=== PATIENT | male | born 1970 | race African-American/Black ===

== ENCOUNTER 2016-09-29 20:08 | Emergency (ER) | payer OTHER ==
[~2016-09-29] VITALS: Ht 180.3 cm; Wt 108.4 kg
[~2016-09-29 20:08] MED LIST: ALBU18 IN; ASPI-231 PO; ATOR10TA52 PO; CARV12.516 PO; CLOP75TA28 PO; FUR40T PO; ISOS30TA4 PO; LIS20T PO; NITR0.4S29 SL; OMEP20CA5 PO; SPIR25TA89 PO
[2016-09-29 21:06] LABS: Basophils # (auto) 0 uL; Basophils % (auto) 0.4 % (0.0-2.0); DEFINITIVE VIEW TRANSMISSION; Eosinophils # (auto) 0 uL; Hematocrit 42.2 % (41.0-53.0); Hemoglobin 13.6 g/dL (13.5-17.5); Lymphocytes # (auto) 0.8 uL; Lymphocytes % (auto) 17.6 % (10.0-50.0); Mean Corpuscular Hemoglobin 25.5 pg (28.0-32.0); Mean Corpuscular Hgb Conc. 32.3 g/dL (32.0-36.0); Mean Corpuscular Volume 79.1 fL (80.0-100.0); Mean Platelet Volume 8.7 fL (7.4-10.4); Monocytes # (auto) 0.4 uL; Neutrophils # (auto) 3.4 uL; Platelet Count (auto) 316 10^3/uL (140-450); White Blood Cell 4.7 10^3/uL (4.4-10.8)
[2016-09-29 21:23] LABS: Partial Thromboplastin Time 30.8 sec (22.64-33.71)
[2016-09-29 21:25] LABS: Albumin 3.2 g/dL (3.4-5.0); BUN/Creatinine Ratio 16.9; Calcium 8.5 mg/dL (8.5-10.1); Potassium 4.5 mmol/L (3.5-5.1)
[2016-09-29 21:27] LABS: INR 1.97 (0.9-1.15); Prothrombin Time 20.3 sec (9.37-12.3)
[2016-09-29] MEDS ORDERED: MORPHINE SULF INJ 2 MG/ML SYRINGE 1ML IV ONE (21:30)
[2016-09-29] MEDS ORDERED: ONDANSETRON HCL 4 MG/2 ML VIAL IV ONE (21:30)
[2016-09-29 21:31] LABS: Bilirubin, Total 0.9 mg/dL (0.2-1.0); Total Protein 6.8 g/dL (6.4-8.2)
[2016-09-29 21:58] LABS: Anisocytosis Slight; Platelet Estimate Adequate
[2016-09-29 21:59] LABS: Ovalocytes FEW
[2016-09-29 22:12] LABS: B-Type Natriuretic Peptide 3119.09 pg/mL (0-100)
[2016-09-29 22:13] LABS: Temperature: 22.2 C (20.0-25.0)
[2016-09-30] MEDS ORDERED: MORPHINE SULF INJ 2 MG/ML SYRINGE 1ML IV ONE (00:15)
[2016-09-30] MEDS ORDERED: ONDANSETRON HCL 4 MG/2 ML VIAL IV ONE (00:15)
[2016-09-30] MEDS ORDERED: NITROGLYCERIN 0.2MG/HR TOPICAL PATCH TD ONE (01:00)
[2016-09-30] MEDS ORDERED: FUROSEMIDE 20 MG/2 ML VIAL IV ONE (01:00)
[2016-09-30] MEDS ORDERED: ASPirin 81 mg TAB PO ONE (01:00)
[2016-09-30 03:07] VITALS: BP 118/57
== END 2016-09-30 03:32 | disposition short-term general hospital (02) ==
LOC: ER 20:08 → EDBD 20:08 → ER 09-30 03:32
DX: I13.0 Hypertensive heart and chronic kidney disease with heart failure and stage 1 through stage 4 chronic kidney disease, or unspecified chronic kidney disease (principal); I50.43 Acute on chronic combined systolic (congestive) and diastolic (congestive) heart failure; R79.89 Other specified abnormal findings of blood chemistry; N28.9 Disorder of kidney and ureter, unspecified; N18.9 Chronic kidney disease, unspecified; I25.2 Old myocardial infarction; Z86.73 Personal history of transient ischemic attack (TIA), and cerebral infarction without residual deficits
CPT/HCPCS: 36415; 71010; 80053; 82150; 83690; 83880; 84484; 85025; 85379; 85610; 85730; 93005; 94761; 96374; 96375; 96376; 99285; J1940; J2270; J2405

== ENCOUNTER 2016-10-15 06:11 | Inpatient (IN) | payer OTHER ==
[~2016-10-15] VITALS: Ht 180.3 cm; Wt 109.8 kg
[2016-10-15 07:03] LABS: Basophils # (auto) 0 uL; Basophils % (auto) 0.5 % (0.0-2.0); DEFINITIVE VIEW TRANSMISSION; Eosinophils # (auto) 0.1 uL; Hematocrit 38.7 % (41.0-53.0); Hemoglobin 12.4 g/dL (13.5-17.5); Lymphocytes # (auto) 0.8 uL; Mean Corpuscular Hemoglobin 25.2 pg (28.0-32.0); Mean Corpuscular Volume 78.9 fL (80.0-100.0); Mean Platelet Volume 8.7 fL (7.4-10.4); Monocytes # (auto) 0.4 uL; Monocytes % (auto) 8.4 % (0.0-12.0); Neutrophils # (auto) 3.9 uL; Neutrophils % (auto) 74.1 % (37.0-80.0); Platelet Count (auto) 281 10^3/uL (140-450); SUSPECT VIEW TRANSMISSION; White Blood Cell 5.3 10^3/uL (4.4-10.8)
[2016-10-15 07:14] LABS: Red Cell Distribution Width 20.2 % (11.6-16.0)
[2016-10-15 07:46] LABS: Albumin 3.4 g/dL (3.4-5.0); BUN/Creatinine Ratio 20.4; Bilirubin, Total 1.1 mg/dL (0.2-1.0); Calcium 8.6 mg/dL (8.5-10.1); Potassium 3.8 mmol/L (3.5-5.1); Total Protein 6.9 g/dL (6.4-8.2)
[2016-10-15] MEDS ORDERED: MORPHINE SULF INJ 2 MG/ML SYRINGE 1ML IV PRN ×2 (08:30→09:00)
[2016-10-15] MEDS ORDERED: HYDROcodone-ACET 5/325MG TAB PO PRN (08:30)
[2016-10-15] MEDS ORDERED: LACTULOSE 20Gm/30ML SOLN PO PRN (08:30)
[2016-10-15] MEDS ORDERED: ACETAMINOPHEN 500 MG TAB PO PRN (08:30)
[2016-10-15] MEDS ORDERED: TEMAZEPAM 15 MG CAP PO PRN (08:30)
[2016-10-15] MEDS ORDERED: PROMETHAZINE HCL 25 MG/ML 1ML IV PRN (08:30)
[2016-10-15] MEDS ORDERED: LORazepam 0.5 MG TAB PO PRN (08:30)
[2016-10-15] MEDS ORDERED: NITROGLYCERIN 0.4 MG SL TAB SL PRN (09:00)
[2016-10-15] MEDS: SODIUM CHLORIDE 0.9% 1,000 ML IV SCH ×2 (09:02→22:08)
[2016-10-15] MEDS: ENOXAPARIN SOD 40 MG/0.4 ML SYRINGE SC SCH (09:31)
[2016-10-15] MEDS: PANTOPRAZOLE 40 MG TAB PO SCH (09:31)
[2016-10-15] MEDS: CLOPIDOGREL BISULFATE 75 MG TAB PO SCH (09:31)
[2016-10-15] MEDS: CARVEDILOL 12.5 MG TAB PO SCH ×2 (09:32→22:16)
[2016-10-15] MEDS: SPIRONOLACTONE 25 MG TAB PO SCH (09:32)
[2016-10-15] MEDS: ASPirin 81 mg TAB PO SCH (09:32)
[2016-10-15] MEDS: LISINOPRIL 20 MG TAB PO SCH (09:33)
[2016-10-15] MEDS: NITROGLYCERIN 0.2MG/HR TOPICAL PATCH TD SCH (09:33)
[2016-10-15] MEDS: FUROSEMIDE 40 MG TAB PO SCH (09:33)
[2016-10-15 10:45] LABS: Partial Thromboplastin Time 30.3 sec (22.64-33.71)
[2016-10-15] MEDS: ALBUTEROL SULF 2.5 MG/0.5ML(0.5%) NEB SOLN NEB PRN ×2 (11:10→22:52)
[2016-10-15 11:29] LABS: INR 1.89 (0.9-1.15); Prothrombin Time 19.5 sec (9.37-12.3)
[2016-10-15 12:35] LABS: Microcytosis Slight
[2016-10-15 12:38] LABS: Anisocytosis Slight; Burr Cells FEW; Hypochromia Slight; Ovalocytes MODERATE
[2016-10-15 12:39] LABS: Platelet Estimate Adequate
[2016-10-15 13:00] VITALS: BP 87/61
[2016-10-15] MEDS: HYDROmorphone HCL 2 MG/ML VL IV PRN ×3 (14:17→23:00)
[2016-10-15] MEDS ORDERED: WARF6TAB21 PO (14:55)
[2016-10-15 15:22] VITALS: BP 87/61
[2016-10-15 17:00] VITALS: BP 101/71
[2016-10-15 20:00] VITALS: BP 116/65
[2016-10-15 21:37] VITALS: BP 116/68
[2016-10-15] MEDS: ATORVASTATIN 20 MG TAB PO SCH (22:17)
[2016-10-15] MEDS: ISOSORBIDE MONONITRATE 60 MG TAB PO SCH (22:17)
[2016-10-16 05:00] VITALS: BP 115/73
[2016-10-16] MEDS: HYDROmorphone HCL 2 MG/ML VL IV PRN ×4 (05:36→20:53)
[2016-10-16 06:43] LABS: Basophils # (auto) 0 uL; Basophils % (auto) 0.5 % (0.0-2.0); DEFINITIVE VIEW TRANSMISSION; Eosinophils # (auto) 0.1 uL; Eosinophils % (auto) 1.6 % (0.0-7.0); Hemoglobin 11.7 g/dL (13.5-17.5); Lymphocytes # (auto) 0.8 uL; Lymphocytes % (auto) 19.1 % (10.0-50.0); Mean Corpuscular Hemoglobin 25.3 pg (28.0-32.0); Mean Corpuscular Hgb Conc. 31.6 g/dL (32.0-36.0); Mean Corpuscular Volume 79.8 fL (80.0-100.0); Mean Platelet Volume 8.7 fL (7.4-10.4); Monocytes # (auto) 0.4 uL; Monocytes % (auto) 9.6 % (0.0-12.0); Neutrophils # (auto) 2.8 uL; Neutrophils % (auto) 69.2 % (37.0-80.0); Platelet Count (auto) 253 10^3/uL (140-450)
[2016-10-16 07:04] LABS: Albumin 2.9 g/dL (3.4-5.0); Bilirubin, Total 0.8 mg/dL (0.2-1.0); Calcium 8.2 mg/dL (8.5-10.1); Potassium 4.4 mmol/L (3.5-5.1)
[2016-10-16 08:00] VITALS: BP 124/78
[2016-10-16] MEDS: SPIRONOLACTONE 25 MG TAB PO SCH (10:02)
[2016-10-16] MEDS: LISINOPRIL 20 MG TAB PO SCH (10:02)
[2016-10-16] MEDS: CLOPIDOGREL BISULFATE 75 MG TAB PO SCH (10:04)
[2016-10-16] MEDS: ASPirin 81 mg TAB PO SCH (10:04)
[2016-10-16] MEDS: CARVEDILOL 12.5 MG TAB PO SCH ×2 (10:04→22:51)
[2016-10-16] MEDS: FUROSEMIDE 40 MG TAB PO SCH (10:05)
[2016-10-16] MEDS: PANTOPRAZOLE 40 MG TAB PO SCH (10:05)
[2016-10-16] MEDS: NITROGLYCERIN 0.2MG/HR TOPICAL PATCH TD SCH (10:06)
[2016-10-16] MEDS: ENOXAPARIN SOD 40 MG/0.4 ML SYRINGE SC SCH (10:07)
[2016-10-16] MEDS: SODIUM CHLORIDE 0.9% 1,000 ML IV SCH (11:04)
[2016-10-16 12:30] VITALS: BP 107/71
[2016-10-16 15:17] LABS: Platelet Estimate Adequate
[2016-10-16 15:21] LABS: Anisocytosis Slight; Hypochromia Moderate
[2016-10-16 15:22] LABS: Burr Cells FEW; Microcytosis Slight; Ovalocytes MODERATE
[2016-10-16 17:00] VITALS: BP 115/44
[2016-10-16] MEDS ORDERED: WARFARIN SODIUM 10 MG TAB PO ONE (17:00)
[2016-10-16] MEDS: ALBUTEROL SULF 2.5 MG/0.5ML(0.5%) NEB SOLN NEB PRN (18:25)
[2016-10-16 22:00] VITALS: BP 106/68
[2016-10-16] MEDS: ATORVASTATIN 20 MG TAB PO SCH (22:49)
[2016-10-16] MEDS: ISOSORBIDE MONONITRATE 60 MG TAB PO SCH (22:52)
[2016-10-17 00:23] LABS: B-Type Natriuretic Peptide 1631.02 pg/mL (0-100); Temperature: 23.1 C (20.0-25.0)
[2016-10-17] MEDS: SODIUM CHLORIDE 0.9% 1,000 ML IV SCH ×2 (00:24→14:08)
[2016-10-17 05:00] VITALS: BP 119/63
[2016-10-17 06:42] LABS: Partial Thromboplastin Time 31.1 sec (22.64-33.71)
[2016-10-17 06:44] LABS: INR 2.27 (0.9-1.15); Prothrombin Time 23.4 sec (9.37-12.3)
[2016-10-17] MEDS: ALBUTEROL SULF 2.5 MG/0.5ML(0.5%) NEB SOLN NEB PRN (07:54)
[2016-10-17 08:00] VITALS: BP 92/53
[2016-10-17 08:30] VITALS: BP 92/53
[2016-10-17] MEDS: HYDROmorphone HCL 2 MG/ML VL IV PRN ×3 (09:47→18:40)
[2016-10-17] MEDS: CLOPIDOGREL BISULFATE 75 MG TAB PO SCH (09:48)
[2016-10-17] MEDS: ENOXAPARIN SOD 40 MG/0.4 ML SYRINGE SC SCH (09:48)
[2016-10-17] MEDS: LISINOPRIL 20 MG TAB PO SCH (09:49)
[2016-10-17] MEDS: ASPirin 81 mg TAB PO SCH (09:49)
[2016-10-17] MEDS: PANTOPRAZOLE 40 MG TAB PO SCH (09:49)
[2016-10-17] MEDS: FUROSEMIDE 40 MG TAB PO SCH (09:49)
[2016-10-17] MEDS: NITROGLYCERIN 0.2MG/HR TOPICAL PATCH TD SCH (09:50)
[2016-10-17] MEDS: SPIRONOLACTONE 25 MG TAB PO SCH (09:50)
[2016-10-17] MEDS: CARVEDILOL 12.5 MG TAB PO SCH (09:50)
[2016-10-17 12:30] VITALS: BP 112/74
[2016-10-17 17:19] VITALS: BP 100/60
== END 2016-10-17 18:45 | disposition short-term general hospital (02) | DRG 291 ==
LOC: ER 06:16 → TELE 06:17 → TELE-EAST 13:00
PROVIDERS: ADMIT Internal Medicine; ATTEND Internal Medicine Pulmonary Disease
DX: I13.0 Hypertensive heart and chronic kidney disease with heart failure and stage 1 through stage 4 chronic kidney disease, or unspecified chronic kidney disease (principal); I50.43 Acute on chronic combined systolic (congestive) and diastolic (congestive) heart failure; I24.9 Acute ischemic heart disease, unspecified; I42.9 Cardiomyopathy, unspecified; E66.01 Morbid (severe) obesity due to excess calories; N18.2 Chronic kidney disease, stage 2 (mild); I25.10 Atherosclerotic heart disease of native coronary artery without angina pectoris; I25.2 Old myocardial infarction; Z95.5 Presence of coronary angioplasty implant and graft; Z87.11 Personal history of peptic ulcer disease; Z86.73 Personal history of transient ischemic attack (TIA), and cerebral infarction without residual deficits; Z95.810 Presence of automatic (implantable) cardiac defibrillator; Z68.33 Body mass index [BMI] 33.0-33.9, adult; Z82.49 Family history of ischemic heart disease and other diseases of the circulatory system; Z86.711 Personal history of pulmonary embolism
CPT/HCPCS: 36415; 71010; 80053; 80061; 82550; 83880; 84484; 85025; 85379; 85610; 85652; 85730; 86141; 93005; 94640; 96374; 99291

== ENCOUNTER 2016-11-06 15:58 | Emergency (ER) | payer OTHER ==
[~2016-11-06] VITALS: Ht 185.4 cm; Wt 99.8 kg
[~2016-11-06 15:58] MED LIST changes: -ASPI-231 PO; -OMEP20CA5 PO; +WARF6TAB21 PO
[2016-11-06 17:10] LABS: Basophils # (auto) 0 uL; Basophils % (auto) 0.5 % (0.0-2.0); DEFINITIVE VIEW TRANSMISSION; Eosinophils # (auto) 0 uL; Eosinophils % (auto) 0.5 % (0.0-7.0); Hematocrit 40.5 % (41.0-53.0); Lymphocytes # (auto) 0.5 uL; Lymphocytes % (auto) 9.6 % (10.0-50.0); Mean Corpuscular Hemoglobin 25.6 pg (28.0-32.0); Mean Corpuscular Hgb Conc. 32.1 g/dL (32.0-36.0); Mean Corpuscular Volume 79.9 fL (80.0-100.0); Mean Platelet Volume 8.9 fL (7.4-10.4); Monocytes # (auto) 0.3 uL; Monocytes % (auto) 5.8 % (0.0-12.0); Neutrophils # (auto) 4.3 uL; Neutrophils % (auto) 83.6 % (37.0-80.0); Platelet Count (auto) 260 10^3/uL (140-450); White Blood Cell 5.1 10^3/uL (4.4-10.8)
[2016-11-06 17:12] LABS: Red Cell Distribution Width 22.9 % (11.6-16.0)
[2016-11-06 17:13] LABS: Albumin 3.5 g/dL (3.4-5.0); BUN/Creatinine Ratio 18.5; Calcium 8.5 mg/dL (8.5-10.1); Magnesium 2.1 mg/dL (1.6-2.6); Potassium 3.8 mmol/L (3.5-5.1)
[2016-11-06 17:18] LABS: Bilirubin, Total 0.7 mg/dL (0.2-1.0); Total Protein 6.7 g/dL (6.4-8.2)
[2016-11-06 18:08] LABS: Anisocytosis Moderate; Burr Cells FEW; Platelet Estimate Adequate
[2016-11-06 18:09] LABS: Hypochromia Slight; Ovalocytes MODERATE
[2016-11-06] MEDS ORDERED: MORPHINE SULFATE 4 MG/ML SYRG IV ONE (19:15)
[2016-11-06] MEDS ORDERED: ONDANSETRON HCL 4 MG/2 ML VIAL IV ONE (19:15)
[2016-11-06 19:32] VITALS: BP 116/82
== END 2016-11-06 21:51 | disposition home or self-care (01) ==
LOC: ER 15:58 → EDBD 15:58 → ER 21:51
DX: R07.2 Precordial pain (principal); F41.9 Anxiety disorder, unspecified; I25.10 Atherosclerotic heart disease of native coronary artery without angina pectoris; I13.0 Hypertensive heart and chronic kidney disease with heart failure and stage 1 through stage 4 chronic kidney disease, or unspecified chronic kidney disease; I50.9 Heart failure, unspecified; N18.9 Chronic kidney disease, unspecified; I25.2 Old myocardial infarction; Z95.0 Presence of cardiac pacemaker; Z79.01 Long term (current) use of anticoagulants
CPT/HCPCS: 36415; 71020; 80053; 83735; 84484; 85025; 93005; 96374; 96375; 99285; J2270; J2405

== ENCOUNTER 2017-02-04 09:53 | Emergency (ER) | payer OTHER ==
[~2017-02-04] VITALS: Ht 180.3 cm; Wt 97.5 kg
[~2017-02-04 09:53] MED LIST changes: +CAR125T PO; -CARV12.516 PO
[2017-02-04 10:30] LABS: Basophils # (auto) 0 uL; Basophils % (auto) 0.3 % (0.0-2.0); CONDITION Y; DEFINITIVE SEE PRINTOUT; Eosinophils # (auto) 0 uL; Eosinophils % (auto) 0.8 % (0.0-7.0); Hematocrit 40.7 % (41.0-53.0); Hemoglobin 13.1 g/dL (13.5-17.5); Lymphocytes # (auto) 0.8 uL; Lymphocytes % (auto) 17.9 % (10.0-50.0); Mean Corpuscular Hemoglobin 25.5 pg (28.0-32.0); Mean Corpuscular Hgb Conc. 32.2 g/dL (32.0-36.0); Mean Corpuscular Volume 79.3 fL (80.0-100.0); Mean Platelet Volume 8.6 fL (7.4-10.4); Monocytes # (auto) 0.4 uL; Monocytes % (auto) 9.1 % (0.0-12.0); Neutrophils # (auto) 3.2 uL; Neutrophils % (auto) 71.9 % (37.0-80.0); Platelet Count (auto) 325 10^3/uL (140-450); White Blood Cell 4.4 10^3/uL (4.4-10.8)
[2017-02-04 10:55] LABS: Albumin 3.4 g/dL (3.4-5.0); BUN/Creatinine Ratio 17.4; Bilirubin, Total 0.7 mg/dL (0.2-1.0); Calcium 8.6 mg/dL (8.5-10.1); Total Protein 6.8 g/dL (6.4-8.2)
[2017-02-04 11:18] LABS: Platelet Estimate Adequate
[2017-02-04 11:22] LABS: Anisocytosis Slight; Hypochromia Slight; Microcytosis Slight
[2017-02-04 11:23] LABS: Ovalocytes MODERATE
[2017-02-04] MEDS ORDERED: SODIUM CHLORIDE 0.9% 1,000 ML IV ONE (12:29)
[2017-02-04] MEDS ORDERED: MORPHINE SULFATE 4 MG/ML SYRG IV ONE ×2 (12:30→17:15)
[2017-02-04] MEDS ORDERED: ONDANSETRON HCL 4 MG/2 ML VIAL IV ONE (12:30)
[2017-02-04] MEDS ORDERED: LORazepam 0.5 MG TAB PO PRN ×2 (14:00)
[2017-02-04] MEDS ORDERED: ALBUTEROL SULF 2.5 MG/0.5ML(0.5%) NEB SOLN NEB PRN (14:00)
[2017-02-04] MEDS ORDERED: TEMAZEPAM 15 MG CAP PO PRN ×2 (14:00)
[2017-02-04] MEDS ORDERED: ONDANSETRON HCL 4 MG/2 ML VIAL IV PRN (14:00)
[2017-02-04] MEDS ORDERED: NITROGLYCERIN 0.4 MG SL TAB SL PRN ×2 (14:00)
[2017-02-04] MEDS ORDERED: MORPHINE SULFATE 4 MG/ML SYRG IV PRN ×4 (14:00)
[2017-02-04] MEDS ORDERED: LACTULOSE 20Gm/30ML SOLN PO PRN (14:00)
[2017-02-04] MEDS ORDERED: ACETAMINOPHEN 500 MG TAB PO PRN ×2 (14:00)
[2017-02-04] MEDS ORDERED: HYDROcodone-ACET 5/325MG TAB PO PRN ×2 (14:00)
[2017-02-04] MEDS ORDERED: PROMETHAZINE HCL 25 MG/ML 1ML IV PRN (14:00)
[2017-02-04 14:29] LABS: Cholesterol 115 mg/dL (< 200); HDL Cholesterol 45 mg/dL (40-59); LDL Cholesterol 62 mg/dL (< 100); Triglycerides 60 mg/dL (< 150)
[2017-02-04] MEDS ORDERED: FUROSEMIDE 40 MG TAB PO ONE (14:30)
[2017-02-04] MEDS ORDERED: CLOPIDOGREL BISULFATE 75 MG TAB PO ONE (14:30)
[2017-02-04] MEDS ORDERED: LISINOPRIL 20 MG TAB PO ONE (14:30)
[2017-02-04 14:42] LABS: INR 1.77 (0.9-1.15); Partial Thromboplastin Time 31.7 sec (22.64-33.71)
[2017-02-04] MEDS ORDERED: SPIRONOLACTONE 25 MG TAB PO ONE (14:45)
[2017-02-04] MEDS ORDERED: NITROGLYCERIN 0.2MG/HR TOPICAL PATCH TD ONE (14:45)
[2017-02-04] MEDS ORDERED: ASPirin 81 mg TAB PO ONE (14:45)
[2017-02-04] MEDS ORDERED: ENOXAPARIN SOD 40 MG/0.4 ML SYRINGE SC ONE (14:45)
[2017-02-04] MEDS ORDERED: ISOSORBIDE MONONITRATE 60 MG TAB PO SCH (14:45)
[2017-02-04 15:02] LABS: Prothrombin Time 19.4 sec (9.37-12.3)
[2017-02-04 15:07] VITALS: BP 107/54
[2017-02-04 16:13] LABS: B-Type Natriuretic Peptide 1563.12 pg/mL (0-100)
[2017-02-04 16:45] LABS: Temperature: 23.1 C (20.0-25.0)
[2017-02-04] MEDS ORDERED: WARFARIN SODIUM 5 MG TAB PO ONE (17:00)
[2017-02-04 18:00] VITALS: BP 128/69
[2017-02-04] MEDS ORDERED: CARVEDILOL 12.5 MG TAB PO SCH (22:00)
[2017-02-04] MEDS ORDERED: ATORVASTATIN 20 MG TAB PO SCH (22:00)
[2017-02-05] MEDS ORDERED: ASPirin 81 mg TAB PO SCH ×2 (10:00)
[2017-02-05] MEDS ORDERED: NITROGLYCERIN 0.2MG/HR TOPICAL PATCH TD SCH ×2 (10:00)
[2017-02-05] MEDS ORDERED: SPIRONOLACTONE 25 MG TAB PO SCH (10:00)
[2017-02-05] MEDS ORDERED: ENOXAPARIN SOD 40 MG/0.4 ML SYRINGE SC SCH (10:00)
[2017-02-05] MEDS ORDERED: FUROSEMIDE 40 MG TAB PO SCH (10:00)
[2017-02-05] MEDS ORDERED: CLOPIDOGREL BISULFATE 75 MG TAB PO SCH (10:00)
[2017-02-05] MEDS ORDERED: LISINOPRIL 20 MG TAB PO SCH (10:00)
== END 2017-02-04 18:17 | disposition short-term general hospital (02) ==
LOC: ER 09:53
DX: I24.9 Acute ischemic heart disease, unspecified (principal); R79.89 Other specified abnormal findings of blood chemistry; I25.10 Atherosclerotic heart disease of native coronary artery without angina pectoris; I13.0 Hypertensive heart and chronic kidney disease with heart failure and stage 1 through stage 4 chronic kidney disease, or unspecified chronic kidney disease; N18.9 Chronic kidney disease, unspecified; E78.5 Hyperlipidemia, unspecified; I25.2 Old myocardial infarction; Z95.0 Presence of cardiac pacemaker; Z79.01 Long term (current) use of anticoagulants; I50.9 Heart failure, unspecified; Z86.79 Personal history of other diseases of the circulatory system
CPT/HCPCS: 36415; 71020; 80053; 80061; 82550; 83880; 84443; 84484; 85025; 85379; 85610; 85652; 85730; 86141; 93005; 93971; 94761; 96361; 96374; 96375; 96376; 99285; J2270; J2405; J7030

== ENCOUNTER 2017-02-10 19:47 | Emergency (ER) | payer OTHER ==
[~2017-02-10] VITALS: Ht 180.3 cm; Wt 97.5 kg
[2017-02-10 20:38] LABS: Basophils # (auto) 0 uL; Basophils % (auto) 0.3 % (0.0-2.0); CONDITION Y; DEFINITIVE SEE PRINTOUT; Eosinophils # (auto) 0.1 uL; Eosinophils % (auto) 1.5 % (0.0-7.0); Hematocrit 40.6 % (41.0-53.0); Hemoglobin 13.5 g/dL (13.5-17.5); Lymphocytes # (auto) 1.1 uL; Lymphocytes % (auto) 21.6 % (10.0-50.0); Mean Corpuscular Hemoglobin 26.2 pg (28.0-32.0); Mean Corpuscular Hgb Conc. 33.3 g/dL (32.0-36.0); Mean Corpuscular Volume 78.8 fL (80.0-100.0); Mean Platelet Volume 8.9 fL (7.4-10.4); Monocytes # (auto) 0.4 uL; Monocytes % (auto) 8.4 % (0.0-12.0); Neutrophils # (auto) 3.4 uL; Neutrophils % (auto) 68.2 % (37.0-80.0); Platelet Count (auto) 297 10^3/uL (140-450); Red Cell Distribution Width 19.6 % (11.6-16.0)
[2017-02-10 20:48] LABS: Albumin 3.3 g/dL (3.4-5.0); BUN/Creatinine Ratio 16.1; Calcium 8.2 mg/dL (8.5-10.1); Potassium 4.2 mmol/L (3.5-5.1)
[2017-02-10 20:57] LABS: Bilirubin, Total 0.7 mg/dL (0.2-1.0); Total Protein 6.9 g/dL (6.4-8.2)
[2017-02-10 20:58] LABS: Urine Bilirubin Negative (Negative); Urine Blood Negative /uL (Negative); Urine Color Yellow (Yellow); Urine Glucose Normal (Normal); Urine Ketone Negative (Negative); Urine Mucus FEW (None Seen); Urine Nitrite Negative (Negative); Urine RBC <1 /hpf (0 - 3); Urine Urobilinogen Normal (Negative)
[2017-02-10 21:03] LABS: Temperature: 23.1 C (20.0-25.0)
[2017-02-10 21:29] LABS: Anisocytosis Slight; Hypochromia Slight; Ovalocytes FEW; Platelet Estimate Adequate
[2017-02-10] MEDS: ONDANSETRON HCL 4 MG/2 ML VIAL IV ONE (22:52)
[2017-02-10] MEDS: MORPHINE SULFATE 4 MG/ML SYRG IV ONE (22:55)
[2017-02-10] MEDS: FUROSEMIDE 20 MG/2 ML VIAL IV ONE (22:58)
[2017-02-11] MEDS: MORPHINE SULFATE 4 MG/ML SYRG IV ONE (01:40)
[2017-02-11 06:54] VITALS: BP 139/81
== END 2017-02-11 07:19 | disposition home or self-care (01) ==
LOC: ER 19:47
DX: I13.0 Hypertensive heart and chronic kidney disease with heart failure and stage 1 through stage 4 chronic kidney disease, or unspecified chronic kidney disease (principal); I50.33 Acute on chronic diastolic (congestive) heart failure; R07.9 Chest pain, unspecified; E78.5 Hyperlipidemia, unspecified; I25.2 Old myocardial infarction; I42.9 Cardiomyopathy, unspecified; Z79.01 Long term (current) use of anticoagulants; I25.10 Atherosclerotic heart disease of native coronary artery without angina pectoris; Z95.0 Presence of cardiac pacemaker; N18.9 Chronic kidney disease, unspecified
CPT/HCPCS: 36415; 71020; 80053; 81001; 83735; 83880; 84484; 85025; 93005; 94761; 96374; 96375; 96376; 99285; J1940; J2270; J2405

== ENCOUNTER 2017-02-22 22:46 | Emergency (ER) | payer OTHER ==
[~2017-02-22] VITALS: Ht 180.3 cm; Wt 97.5 kg
[2017-02-22 23:20] LABS: Basophils # (auto) 0 uL; Basophils % (auto) 0.1 % (0.0-2.0); CONDITION Y; DEFINITIVE SEE PRINTOUT; Eosinophils # (auto) 0.1 uL; Eosinophils % (auto) 0.9 % (0.0-7.0); Hematocrit 38.2 % (41.0-53.0); Hemoglobin 12.1 g/dL (13.5-17.5); Lymphocytes # (auto) 0.8 uL; Lymphocytes % (auto) 13.3 % (10.0-50.0); Mean Corpuscular Hemoglobin 25.2 pg (28.0-32.0); Mean Corpuscular Hgb Conc. 31.8 g/dL (32.0-36.0); Mean Corpuscular Volume 79.2 fL (80.0-100.0); Mean Platelet Volume 8.5 fL (7.4-10.4); Monocytes # (auto) 0.4 uL; Monocytes % (auto) 6.6 % (0.0-12.0); Neutrophils # (auto) 4.5 uL; Neutrophils % (auto) 79.1 % (37.0-80.0); Platelet Count (auto) 295 10^3/uL (140-450); Red Cell Distribution Width 19.5 % (11.6-16.0); White Blood Cell 5.7 10^3/uL (4.4-10.8)
[2017-02-22 23:34] LABS: INR 2.49 (0.9-1.15); Partial Thromboplastin Time 34.3 sec (22.64-33.71)
[2017-02-22 23:42] LABS: Prothrombin Time 27.4 sec (9.37-12.3)
[2017-02-22 23:44] LABS: Albumin 3.3 g/dL (3.4-5.0); BUN/Creatinine Ratio 15.8; Calcium 8.6 mg/dL (8.5-10.1); Magnesium 2.1 mg/dL (1.6-2.6); Potassium 4.1 mmol/L (3.5-5.1)
[2017-02-22 23:50] LABS: Bilirubin, Total 0.6 mg/dL (0.2-1.0); Total Protein 6.5 g/dL (6.4-8.2)
[2017-02-23] MEDS ORDERED: FUROSEMIDE 20 MG/2 ML VIAL IV ONE (01:15)
[2017-02-23] MEDS ORDERED: HYDROmorphone HCL 2 MG/ML VL IV ONE ×2 (01:45→06:30)
[2017-02-23] MEDS ORDERED: ONDANSETRON HCL 4 MG/2 ML VIAL IV ONE ×2 (01:45→06:30)
[2017-02-23 08:17] VITALS: BP 106/72
== END 2017-02-23 09:39 | disposition short-term general hospital (02) ==
LOC: EDBD 22:46 → ER 22:46
DX: I13.0 Hypertensive heart and chronic kidney disease with heart failure and stage 1 through stage 4 chronic kidney disease, or unspecified chronic kidney disease (principal); I50.9 Heart failure, unspecified; N18.9 Chronic kidney disease, unspecified; R79.89 Other specified abnormal findings of blood chemistry; E78.5 Hyperlipidemia, unspecified; I25.2 Old myocardial infarction; I25.10 Atherosclerotic heart disease of native coronary artery without angina pectoris; Z95.1 Presence of aortocoronary bypass graft; Z98.61 Coronary angioplasty status; Z79.899 Other long term (current) drug therapy
CPT/HCPCS: 36415; 71010; 80053; 83735; 83880; 84484; 85025; 85379; 85610; 85730; 93005; 96374; 96375; 96376; 99285; J1170; J1940; J2405

== ENCOUNTER 2017-03-20 03:13 | Emergency (ER) | payer OTHER ==
[~2017-03-20] VITALS: Ht 180.3 cm; Wt 102.1 kg
[2017-03-20 04:23] LABS: Basophils # (auto) 0 uL; Basophils % (auto) 0.2 % (0.0-2.0); CONDITION Y; DEFINITIVE SEE PRINTOUT; Eosinophils # (auto) 0.1 uL; Eosinophils % (auto) 2.9 % (0.0-7.0); Hematocrit 39.3 % (41.0-53.0); Hemoglobin 12.4 g/dL (13.5-17.5); Lymphocytes # (auto) 0.8 uL; Lymphocytes % (auto) 16.2 % (10.0-50.0); Mean Corpuscular Hemoglobin 24.8 pg (28.0-32.0); Mean Corpuscular Hgb Conc. 31.5 g/dL (32.0-36.0); Mean Corpuscular Volume 78.7 fL (80.0-100.0); Monocytes # (auto) 0.4 uL; Neutrophils # (auto) 3.4 uL; Neutrophils % (auto) 71.7 % (37.0-80.0); Platelet Count (auto) 276 10^3/uL (140-450); Red Cell Distribution Width 19.8 % (11.6-16.0); White Blood Cell 4.8 10^3/uL (4.4-10.8)
[2017-03-20] MEDS ORDERED: ONDANSETRON HCL 4 MG/2 ML VIAL IV ONE (04:30)
[2017-03-20] MEDS ORDERED: HYDROmorphone HCL 2 MG/ML VL IV ONE (04:30)
[2017-03-20 04:42] LABS: Temperature: 21.9 C (20.0-25.0)
[2017-03-20 04:51] LABS: Albumin 3.2 g/dL (3.4-5.0); BUN/Creatinine Ratio 16.8; Magnesium 2.2 mg/dL (1.6-2.6); Potassium 3.8 mmol/L (3.5-5.1)
[2017-03-20 04:56] LABS: Bilirubin, Total 0.7 mg/dL (0.2-1.0); Total Protein 6.9 g/dL (6.4-8.2)
[2017-03-20] MEDS ORDERED: FUROSEMIDE 20 MG/2 ML VIAL IV ONE (07:45)
[2017-03-20] MEDS ORDERED: MORPHINE SULF INJ 2 MG/ML SYRINGE 1ML IV PRN (07:45)
[2017-03-20 10:48] LABS: Urine Bilirubin Negative (Negative); Urine Blood Negative /uL (Negative); Urine Color Colorless (Yellow); Urine Glucose Normal (Normal); Urine Ketone Negative (Negative); Urine Mucus FEW (None Seen); Urine Nitrite Negative (Negative); Urine RBC <1 /hpf (0 - 3); Urine Squamous Epithelial Cell FEW /hpf (<5); Urine Urobilinogen Normal (Negative)
[2017-03-20 12:42] VITALS: BP 123/81
== END 2017-03-20 12:50 | disposition home or self-care (01) ==
LOC: ER 03:16
DX: I25.118 Atherosclerotic heart disease of native coronary artery with other forms of angina pectoris (principal); I13.0 Hypertensive heart and chronic kidney disease with heart failure and stage 1 through stage 4 chronic kidney disease, or unspecified chronic kidney disease; I50.42 Chronic combined systolic (congestive) and diastolic (congestive) heart failure; N18.9 Chronic kidney disease, unspecified; E44.1 Mild protein-calorie malnutrition; E78.5 Hyperlipidemia, unspecified; I25.2 Old myocardial infarction; Z95.1 Presence of aortocoronary bypass graft
CPT/HCPCS: 36415; 71010; 80053; 80307; 81001; 83735; 83880; 84443; 84484; 85025; 85379; 85610; 85730; 96374; 96375; 99285; J1170; J1940; J2270; J2405

== ENCOUNTER 2017-07-01 00:05 | Emergency (ER) | payer OTHER ==
[~2017-07-01] VITALS: Ht 180.3 cm; Wt 102.1 kg
[2017-07-01 00:43] LABS: Eosinophils # (auto) 0.1 uL; Lymphocytes # (auto) 0.8 uL; Lymphocytes % (auto) 13.2 % (10.0-50.0); Mean Corpuscular Hemoglobin 24.5 pg (28.0-32.0); Neutrophils # (auto) 4.3 uL; Nucleated Red Blood Cells % 0.1 %; White Blood Cell 5.8 10^3/uL (4.4-10.8)
[2017-07-01 00:45] LABS: Basophils # (auto) 0.1 uL; Basophils % (auto) 1.2 % (0.0-2.0); Eosinophils % (auto) 1.1 % (0.0-7.0); Hematocrit 29.2 % (41.0-53.0); Hemoglobin 9.4 g/dL (13.5-17.5); Mean Corpuscular Hgb Conc. 32.1 g/dL (32.0-36.0); Mean Corpuscular Volume 76.1 fL (80.0-100.0); Mean Platelet Volume 7.4 fL (6.9-10.8); Monocytes # (auto) 0.6 uL; Monocytes % (auto) 10.6 % (0.0-12.0); Neutrophils % (auto) 73.9 % (37.0-80.0); Platelet Count (auto) 235 10^3/uL (140-450)
[2017-07-01 00:59] LABS: BUN/Creatinine Ratio 18.4; Calcium 8.1 mg/dL (8.5-10.1); Magnesium 1.9 mg/dL (1.6-2.6); Potassium 3.1 mmol/L (3.5-5.1)
[2017-07-01 01:04] LABS: Bilirubin, Total 0.4 mg/dL (0.2-1.0); Total Protein 6.8 g/dL (6.4-8.2)
[2017-07-01 01:23] LABS: Anisocytosis Moderate; Microcytosis Slight; Ovalocytes FEW; Platelet Estimate Adequate
[2017-07-01 01:24] LABS: Hypersegmented Neutrophils Present
[2017-07-01 01:26] LABS: Temperature: 21.5 C (20.0-25.0)
[2017-07-01] MEDS ORDERED: ENALAPRILAT 1.25 MG/ML-1ML VIAL IV ONE ×2 (02:00)
[2017-07-01] MEDS ORDERED: HYDROmorphone HCL 2 MG TAB PO ONE ×3 (02:00→06:30)
[2017-07-01] MEDS ORDERED: PIPERACILLIN-TAZO 4.5GM 50 ML IV ONE (02:00)
[2017-07-01] MEDS ORDERED: MORPHINE SULF INJ 2 MG/ML SYRINGE 1ML IV ONE (02:45)
[2017-07-01] MEDS ORDERED: ONDANSETRON HCL 4 MG/2 ML VIAL IV ONE (02:45)
[2017-07-01 02:48] LABS: INR 2.35 (0.9-1.15); Prothrombin Time 25.8 sec (9.37-12.3)
[2017-07-01 03:36] LABS: Urine Bilirubin Negative (Negative); Urine Blood Negative /uL (Negative); Urine Color Yellow (Yellow); Urine Glucose Normal (Normal); Urine Ketone Negative (Negative); Urine Mucus FEW (None Seen); Urine Nitrite Negative (Negative); Urine RBC 1 /hpf (0 - 3); Urine Squamous Epithelial Cell FEW /hpf (<5); Urine Urobilinogen Normal (Negative)
[2017-07-01 05:21] VITALS: BP 129/95
[2017-07-01] MEDS ORDERED: POTASSIUM CHL 10% (20 MEQ/15ML) 15ml ORAL SOLN PO ONE (06:00)
[2017-07-01] MEDS ORDERED: FUROSEMIDE 40 MG/4 ML VIAL IV ONE (06:30)
== END 2017-07-01 07:35 | disposition short-term general hospital (02) ==
LOC: EDBD 00:05 → EDUNIT# 00:05 → ER 00:15
DX: R07.89 Other chest pain (principal); I20.9 Angina pectoris, unspecified; I13.10 Hypertensive heart and chronic kidney disease without heart failure, with stage 1 through stage 4 chronic kidney disease, or unspecified chronic kidney disease; I50.9 Heart failure, unspecified; N18.9 Chronic kidney disease, unspecified; I25.2 Old myocardial infarction; Z86.73 Personal history of transient ischemic attack (TIA), and cerebral infarction without residual deficits; Z95.1 Presence of aortocoronary bypass graft; Z95.0 Presence of cardiac pacemaker; E78.5 Hyperlipidemia, unspecified; Z79.899 Other long term (current) drug therapy
CPT/HCPCS: 36415; 71010; 80053; 81001; 83605; 83735; 83880; 84484; 85025; 85610; 85730; 86141; 87040; 93005; 96365; 96366; 96375; 99285; J1940; J2270; J2405; J2543

== ENCOUNTER 2017-08-05 11:29 | Emergency (ER) | payer OTHER ==
[~2017-08-05] VITALS: Ht 180.3 cm; Wt 111.1 kg
[2017-08-05] MEDS ORDERED: SODIUM CHLORIDE 0.9% 1,000 ML IV ONE (11:32)
[2017-08-05] MEDS ORDERED: ACETAMINOPHEN 500 MG TAB PO ONE ×3 (11:45→22:15)
[2017-08-05 12:18] LABS: Eosinophils # (auto) 0 uL; Hemoglobin 10.3 g/dL (13.5-17.5); Lymphocytes # (auto) 0.2 uL; Mean Corpuscular Hemoglobin 22.2 pg (28.0-32.0); Monocytes # (auto) 0.6 uL
[2017-08-05 12:20] LABS: Basophils # (auto) 0.1 uL; Basophils % (auto) 0.6 % (0.0-2.0); Hematocrit 33.3 % (41.0-53.0); Lymphocytes % (auto) 2.8 % (10.0-50.0); Mean Corpuscular Volume 71.7 fL (80.0-100.0); Monocytes % (auto) 7.2 % (0.0-12.0); Neutrophils # (auto) 7.9 uL; Neutrophils % (auto) 89.4 % (37.0-80.0); Platelet Count (auto) 239 10^3/uL (140-450); Red Blood Cells 4.64 10^6/uL (4.5-5.90); White Blood Cell 8.9 10^3/uL (4.4-10.8)
[2017-08-05 12:37] LABS: Albumin 3.7 g/dL (3.4-5.0); BUN/Creatinine Ratio 14.2; Calcium 8.3 mg/dL (8.5-10.1); INR 2.14 (0.9-1.15); Partial Thromboplastin Time 43.4 sec (22.64-33.71); Potassium 3.6 mmol/L (3.5-5.1); Prothrombin Time 23.5 sec (9.37-12.3)
[2017-08-05 12:42] LABS: Red Cell Distribution Width 20.3 % (11.8-14.3)
[2017-08-05 12:43] LABS: Bilirubin, Total 0.6 mg/dL (0.2-1.0)
[2017-08-05] MEDS ORDERED: MORPHINE SULFATE 4 MG/ML SYR/VIAL IV ONE ×2 (14:00→21:45)
[2017-08-05] MEDS ORDERED: ONDANSETRON HCL 4 MG/2 ML VIAL IV ONE ×2 (14:00→21:45)
[2017-08-05] MEDS ORDERED: MORPHINE SULF INJ 2 MG/ML SYRINGE 1ML ONE (14:02)
[2017-08-05] MEDS ORDERED: MORPHINE SULFATE 10 MG/ML INJ 1ML SDV IV ONE (14:45)
[2017-08-05] MEDS ORDERED: OSELTAMIVIR 75 MG CAP PO ONE (15:30)
[2017-08-05] MEDS ORDERED: ENOXAPARIN SOD 100 MG/1 ML SYRINGE SC ONE (16:00)
[2017-08-05] MEDS ORDERED: NITROGLYCERIN 0.4 MG SL TAB SL ONE (16:00)
[2017-08-05] MEDS ORDERED: ASPirin 81 mg TAB PO ONE (16:00)
[2017-08-05 22:21] VITALS: BP 163/61
== END 2017-08-05 22:38 | disposition short-term general hospital (02) ==
LOC: EDBD 11:29 → ER 11:29
DX: I13.0 Hypertensive heart and chronic kidney disease with heart failure and stage 1 through stage 4 chronic kidney disease, or unspecified chronic kidney disease (principal); I50.9 Heart failure, unspecified; I25.10 Atherosclerotic heart disease of native coronary artery without angina pectoris; N18.9 Chronic kidney disease, unspecified; I25.2 Old myocardial infarction; E78.00 Pure hypercholesterolemia, unspecified; Z95.1 Presence of aortocoronary bypass graft; Z95.0 Presence of cardiac pacemaker; Z79.01 Long term (current) use of anticoagulants; Z79.899 Other long term (current) drug therapy
CPT/HCPCS: 36415; 71045; 80053; 83605; 83880; 84484; 85025; 85610; 85730; 87040; 87400; 93005; 96361; 96372; 96374; 96375; 96376; 99285; J1650; J2270; J2405; J7030

== ENCOUNTER 2017-10-18 10:32 | Emergency (ER) | payer OTHER ==
[~2017-10-18] VITALS: Ht 180.3 cm; Wt 106.6 kg
[2017-10-18] MEDS ORDERED: MORPHINE SULFATE 4 MG/ML SYR/VIAL IV ONE ×3 (11:15→18:00)
[2017-10-18] MEDS ORDERED: ONDANSETRON HCL 4 MG/2 ML VIAL IV ONE (11:15)
[2017-10-18 11:18] LABS: Eosinophils # (auto) 0 uL; Eosinophils % (auto) 0.1 % (0.0-7.0); Lymphocytes # (auto) 0.3 uL
[2017-10-18 11:21] LABS: Basophils # (auto) 0.1 uL; Basophils % (auto) 0.6 % (0.0-2.0); Lymphocytes % (auto) 2.5 % (10.0-50.0); Mean Corpuscular Hemoglobin 21.8 pg (28.0-32.0); Mean Corpuscular Hgb Conc. 30.4 g/dL (32.0-36.0); Mean Corpuscular Volume 71.6 fL (80.0-100.0); Monocytes # (auto) 0.6 uL; Monocytes % (auto) 5.1 % (0.0-12.0); Neutrophils # (auto) 10.3 uL; Neutrophils % (auto) 91.7 % (37.0-80.0); Platelet Count (auto) 315 10^3/uL (140-450); Red Blood Cells 5.04 10^6/uL (4.5-5.90); White Blood Cell 11.2 10^3/uL (4.4-10.8)
[2017-10-18 11:35] LABS: INR 2.03 (0.9-1.15); Partial Thromboplastin Time 37.4 sec (22.64-33.71); Prothrombin Time 22.3 sec (9.37-12.3)
[2017-10-18 11:38] LABS: Alanine Aminotransferase 15 U/L (16-61); Albumin 3.6 g/dL (3.4-5.0); Alkaline Phosphatase 85 U/L (45-117); Anion Gap 9 (5-15); Aspartate Aminotransferase 18 U/L (15-37); BUN/Creatinine Ratio 17.2; Bilirubin, Total 0.7 mg/dL (0.2-1.0); Blood Urea Nitrogen 22 mg/dL (7-18); Calcium 8.5 mg/dL (8.5-10.1); Carbon Dioxide 23 mmol/L (21-32); Chloride 109 mmol/L (98-107); GFR African American 79 mL/min; GFR Non-African American 65 mL/min; Glucose 109 mg/dL (74-106); Potassium 3.8 mmol/L (3.5-5.1); Sodium 141 mmol/L (136-145); Total Protein 8.1 g/dL (6.4-8.2)
[2017-10-18 11:51] LABS: Red Cell Distribution Width 22.9 % (11.8-14.3)
[2017-10-18] MEDS ORDERED: cefTRIAXone 1GM/10ml IVPUSH 10 ML IV ONE (12:15)
[2017-10-18 20:12] VITALS: BP 122/88
== END 2017-10-18 20:46 | disposition home or self-care (01) ==
LOC: ER 10:32
DX: K35.80 Unspecified acute appendicitis (principal); I13.0 Hypertensive heart and chronic kidney disease with heart failure and stage 1 through stage 4 chronic kidney disease, or unspecified chronic kidney disease; I50.9 Heart failure, unspecified; N18.9 Chronic kidney disease, unspecified; E78.5 Hyperlipidemia, unspecified; I25.2 Old myocardial infarction; Z87.11 Personal history of peptic ulcer disease; I25.810 Atherosclerosis of coronary artery bypass graft(s) without angina pectoris; Z79.01 Long term (current) use of anticoagulants; Z86.73 Personal history of transient ischemic attack (TIA), and cerebral infarction without residual deficits; Z95.0 Presence of cardiac pacemaker; Z95.1 Presence of aortocoronary bypass graft
CPT/HCPCS: 36415; 71045; 74176; 80053; 84484; 85025; 85610; 85730; 93005; 96374; 96375; 96376; 99291; J2270; J2405

== ENCOUNTER 2018-01-02 19:52 | Emergency (ER) | payer OTHER ==
[~2018-01-02] VITALS: Ht 177.8 cm; Wt 95.3 kg
[2018-01-02] MEDS: MORPHINE SULFATE 8mg/ml INJ SDV IV ONE ×2 (20:46→23:16)
[2018-01-02] MEDS: MORPHINE SULFATE INJECTION 1 ML ONE ×2 (20:46→23:14)
[2018-01-02] MEDS: ONDANSETRON HCL 4 MG/2 ML VIAL IV ONE (20:46)
[2018-01-02 21:02] LABS: Basophils # (auto) 0.1 uL; Eosinophils # (auto) 0 uL; Platelet Count (auto) 280 10^3/uL (140-450)
[2018-01-02 21:03] LABS: Basophils % (auto) 0.8 % (0.0-2.0); Hemoglobin 8.2 g/dL (13.5-17.5); Lymphocytes # (auto) 0.1 uL; Lymphocytes % (auto) 0.5 % (10.0-50.0); Mean Corpuscular Hemoglobin 26.5 pg (28.0-32.0); Mean Corpuscular Hgb Conc. 31.6 g/dL (32.0-36.0); Mean Corpuscular Volume 83.8 fL (80.0-100.0); Monocytes # (auto) 0.9 uL; Monocytes % (auto) 5.8 % (0.0-12.0); Neutrophils # (auto) 14.2 uL; Neutrophils % (auto) 92.9 % (37.0-80.0); White Blood Cell 15.2 10^3/uL (4.4-10.8)
[2018-01-02 21:04] LABS: Red Cell Distribution Width 25.8 % (11.8-14.3)
[2018-01-02 21:16] LABS: INR 1.01 (0.9-1.15); Partial Thromboplastin Time 25.3 sec (23.78-33.04); Prothrombin Time 10.8 sec (9.27-12.13)
[2018-01-02 21:19] LABS: Calcium 8.2 mg/dL (8.5-10.1); Potassium 4.2 mmol/L (3.5-5.1)
[2018-01-02 21:23] LABS: BUN/Creatinine Ratio 26.6; Magnesium 1.6 mg/dL (1.6-2.6)
[2018-01-02 21:28] LABS: Bilirubin, Total 0.2 mg/dL (0.2-1.0); Total Protein 6.5 g/dL (6.4-8.2)
[2018-01-03] MEDS: HYDROmorphone HCL 2 MG/ML VL IV ONE (01:57)
[2018-01-03] MEDS: ONDANSETRON HCL 4 MG/2 ML VIAL IV ONE (01:58)
[2018-01-03 02:19] LABS: Urine Bacteria NONE SEEN /hpf (None Seen); Urine Blood Negative /uL (Negative); Urine Specific Gravity 1.026 (1.001-1.035); Urine WBC 1 /hpf (0 - 3)
[2018-01-03 05:13] VITALS: BP 105/81
[2018-01-03] MEDS ORDERED: FUROSEMIDE 20 MG/2 ML VIAL IV ONE (06:15)
[2018-01-03] MEDS ORDERED: NITROGLYCERIN 0.4 MG SL TAB SL PRN (06:30)
[2018-01-03] MEDS ORDERED: TEMAZEPAM 15 MG CAP PO PRN (06:30)
[2018-01-03] MEDS ORDERED: MORPHINE SULFATE 8mg/ml INJ SDV IV PRN (06:30)
[2018-01-03] MEDS ORDERED: ACETAMINOPHEN 325 MG TAB PO PRN (06:30)
[2018-01-03] MEDS ORDERED: ALBUTEROL SULF 2.5 MG/0.5ML(0.5%) NEB SOLN NEB PRN (06:30)
[2018-01-03] MEDS ORDERED: HYDROcodone-ACET 5/325MG TAB PO PRN (06:30)
[2018-01-03] MEDS ORDERED: ONDANSETRON HCL 4 MG/2 ML VIAL IV PRN (06:30)
[2018-01-03] MEDS ORDERED: cefTRIAXone 1GM/10ml IVPUSH 10 ML IV SCH (09:00)
[2018-01-03] MEDS ORDERED: ISOSORBIDE MONONITRATE 60 MG TAB PO SCH (10:00)
[2018-01-03] MEDS ORDERED: PANTOPRAZOLE 40 MG TAB PO SCH (10:00)
[2018-01-03] MEDS ORDERED: LISINOPRIL 20 MG TAB PO SCH (10:00)
[2018-01-03] MEDS ORDERED: SPIRONOLACTONE 25 MG TAB PO SCH (10:00)
[2018-01-03] MEDS ORDERED: CARVEDILOL 12.5 MG TAB PO SCH (10:00)
[2018-01-03] MEDS ORDERED: ASPirin 81 mg TAB PO SCH (10:00)
[2018-01-03] MEDS ORDERED: FUROSEMIDE 20 MG TAB PO SCH (10:00)
[2018-01-03] MEDS ORDERED: WARFARIN SODIUM 10 MG TAB PO ONE (17:00)
[2018-01-03] MEDS ORDERED: ATORVASTATIN 20 MG TAB PO SCH (22:00)
== END 2018-01-03 06:54 | disposition home or self-care (01) ==
LOC: EDBD 19:52 → ER 19:52
DX: I13.0 Hypertensive heart and chronic kidney disease with heart failure and stage 1 through stage 4 chronic kidney disease, or unspecified chronic kidney disease (principal); N18.9 Chronic kidney disease, unspecified; I50.9 Heart failure, unspecified; D72.829 Elevated white blood cell count, unspecified; R79.89 Other specified abnormal findings of blood chemistry; I25.2 Old myocardial infarction; Z95.1 Presence of aortocoronary bypass graft; Z98.61 Coronary angioplasty status; Z79.899 Other long term (current) drug therapy; Z94.1 Heart transplant status
CPT/HCPCS: 36415; 71045; 80053; 81001; 83735; 83880; 84484; 85025; 85610; 85730; 93005; 96374; 96375; 96376; 99285; J1170; J2270; J2405

== ENCOUNTER 2018-03-09 18:53 | Observation (INO) | payer OTHER ==
[~2018-03-09] VITALS: Ht 180.3 cm; Wt 106.6 kg
[2018-03-09 19:46] LABS: White Blood Cell 5.2 10^3/uL (4.4-10.8)
[2018-03-09 19:48] LABS: Hematocrit 33.7 % (41.0-53.0); Hemoglobin 10.6 g/dL (13.5-17.5); Mean Corpuscular Hemoglobin 24.6 pg (28.0-32.0); Mean Corpuscular Hgb Conc. 31.4 g/dL (32.0-36.0); Mean Corpuscular Volume 78.3 fL (80.0-100.0); Platelet Count (auto) 304 10^3/uL (140-450); Red Blood Cells 4.31 10^6/uL (4.5-5.90)
[2018-03-09 19:57] LABS: Red Cell Distribution Width 21.5 % (11.8-14.3)
[2018-03-09 19:58] LABS: Basophils % (manual) 0 (0.0-2.0); Blast Cells 0; Eosinophils % (manual) 0 (0-7); Metamyelocytes % 0; Myelocytes % 0; Promyelocytes % 0
[2018-03-09 20:02] LABS: Alanine Aminotransferase 14 U/L (16-61); Albumin 3.8 g/dL (3.4-5.0); Alkaline Phosphatase 62 U/L (45-117); Anion Gap 4 (5-15); Aspartate Aminotransferase 7 U/L (15-37); BUN/Creatinine Ratio 18.5; Bilirubin, Total 0.2 mg/dL (0.2-1.0); Blood Urea Nitrogen 27 mg/dL (7-18); Calcium 8.2 mg/dL (8.5-10.1); Carbon Dioxide 25 mmol/L (21-32); Chloride 111 mmol/L (98-107); GFR African American 67 mL/min; GFR Non-African American 55 mL/min; Glucose 96 mg/dL (74-106); Potassium 3.9 mmol/L (3.5-5.1); Sodium 140 mmol/L (136-145); Total Protein 7.1 g/dL (6.4-8.2)
[2018-03-09 20:32] LABS: INR 1.05 (0.9-1.15); Partial Thromboplastin Time 26.7 sec (23.78-33.04); Prothrombin Time 11.2 sec (9.27-12.13)
[2018-03-09 20:45] LABS: Band Neutrophils % (manual) 3
[2018-03-09 20:46] LABS: Lymphocytes % (manual) 6 (10.0-50.0); Monocytes % (manual) 6 (0-12); Reactive Lymphocytes 2
[2018-03-09] MEDS ORDERED: MORPHINE SULF INJ 2 MG/ML SYRINGE 1ML IV ONE ×2 (21:00→23:45)
[2018-03-09] MEDS ORDERED: ONDANSETRON HCL 4 MG/2 ML VIAL IV ONE (21:00)
[2018-03-09] MEDS ORDERED: ASPirin 81 mg TAB PO ONE (21:00)
[2018-03-09] MEDS: MAGNESIUM SULFATE 1GM/100ML 100 ML IV SCH ×2 (21:00→22:00)
[2018-03-09] MEDS ORDERED: cloNIDine HCL 0.1 MG TAB PO ONE (22:45)
[2018-03-10 02:31] VITALS: BP 151/80
[2018-03-10] MEDS ORDERED: MORPHINE SULF INJ 2 MG/ML SYRINGE 1ML IV ONE (03:00)
== END 2018-03-10 02:57 | disposition short-term general hospital (02) | DRG 302 ==
LOC: ER 18:53 → OVERFLOW 18:54 → ER 03-10 02:57
PROVIDERS: ADMIT Family Medicine; ATTEND Family Medicine
DX: I25.110 Atherosclerotic heart disease of native coronary artery with unstable angina pectoris (principal); I50.43 Acute on chronic combined systolic (congestive) and diastolic (congestive) heart failure; I11.0 Hypertensive heart disease with heart failure; E83.42 Hypomagnesemia; Z86.73 Personal history of transient ischemic attack (TIA), and cerebral infarction without residual deficits; Z95.1 Presence of aortocoronary bypass graft
CPT/HCPCS: 36415; 71045; 74176; 80053; 83735; 83880; 84443; 84484; 85007; 85027; 85610; 85730; 93005; 96365; 96366; 96375; 96376; 99291; G0378; J2270; J2405; J3475

== ENCOUNTER 2018-07-11 10:34 | Emergency (ER) | payer OTHER ==
[~2018-07-11] VITALS: Ht 180.3 cm; Wt 113.4 kg
[~2018-07-11 10:34] MED LIST changes: +SPIR25TA8 PO; -SPIR25TA89 PO
[2018-07-11] MEDS ORDERED: ASPirin 81 mg TAB PO ONE (11:00)
[2018-07-11] MEDS ORDERED: NITROGLYCERIN 0.4 MG SL TAB SL ONE (11:00)
[2018-07-11 11:33] LABS: Hematocrit 46.5 % (41.0-53.0); Hemoglobin 14.8 g/dL (13.5-17.5); Mean Corpuscular Hemoglobin 26.8 pg (28.0-32.0); Mean Corpuscular Hgb Conc. 31.9 g/dL (32.0-36.0); Mean Corpuscular Volume 83.9 fL (80.0-100.0); Platelet Count (auto) 209 10^3/uL (140-450); Red Blood Cells 5.54 10^6/uL (4.5-5.90); Red Cell Distribution Width 18.9 % (11.8-14.3); White Blood Cell 6.5 10^3/uL (4.4-10.8)
[2018-07-11 11:38] LABS: Alanine Aminotransferase 26 U/L (16-61); Albumin 3.7 g/dL (3.4-5.0); Anion Gap 6 (5-15); Aspartate Aminotransferase 30 U/L (15-37); Blood Urea Nitrogen 26 mg/dL (7-18); Calcium 8.8 mg/dL (8.5-10.1); Carbon Dioxide 25 mmol/L (21-32); Chloride 111 mmol/L (98-107); Glucose 66 mg/dL (74-106); Potassium 3.5 mmol/L (3.5-5.1); Sodium 142 mmol/L (136-145)
[2018-07-11 11:42] LABS: Alkaline Phosphatase 64 U/L (45-117); BUN/Creatinine Ratio 21.1; Bilirubin, Total 0.4 mg/dL (0.2-1.0); GFR African American 82 mL/min; GFR Non-African American 68 mL/min; Total Protein 7.1 g/dL (6.4-8.2)
[2018-07-11 11:51] LABS: Band Neutrophils % (manual) 0; Basophils % (manual) 0 (0.0-2.0); Blast Cells 0; Eosinophils % (manual) 0 (0-7); Metamyelocytes % 0; Myelocytes % 0; Promyelocytes % 0; Reactive Lymphocytes 0
[2018-07-11 14:04] LABS: Lymphocytes % (manual) 3 (10.0-50.0); Monocytes % (manual) 4 (0-12)
[2018-07-11] MEDS ORDERED: ONDANSETRON HCL 4 MG/2 ML VIAL IV ONE ×2 (14:45→20:15)
[2018-07-11] MEDS ORDERED: MORPHINE SULFATE 4 MG/ML SYR/VIAL IV ONE ×2 (14:45→20:15)
[2018-07-11] MEDS ORDERED: IOHEXOL 350 MG/ML 100ML IJ ONE (16:12)
[2018-07-11 16:13] LABS: INR 0.99 (0.9-1.15); Prothrombin Time 10.6 sec (9.27-12.13)
[2018-07-11 21:40] VITALS: BP 138/81
== END 2018-07-11 21:53 | disposition short-term general hospital (02) ==
LOC: ER 10:34
DX: I24.9 Acute ischemic heart disease, unspecified (principal); I13.0 Hypertensive heart and chronic kidney disease with heart failure and stage 1 through stage 4 chronic kidney disease, or unspecified chronic kidney disease; N18.9 Chronic kidney disease, unspecified; I50.9 Heart failure, unspecified; I25.2 Old myocardial infarction; Z86.73 Personal history of transient ischemic attack (TIA), and cerebral infarction without residual deficits; Z90.89 Acquired absence of other organs; Z98.61 Coronary angioplasty status
CPT/HCPCS: 36415; 71046; 71275; 80053; 83880; 84484; 85007; 85027; 85610; 93005; 96374; 96375; 96376; 99285; J2270; J2405; Q9967

== ENCOUNTER 2018-12-15 16:27 | Emergency (ER) | payer OTHER ==
[~2018-12-15] VITALS: Ht 154.9 cm; Wt 122.5 kg
[2018-12-15 17:07] LABS: Basophils # (auto) 0 uL; Basophils % (auto) 0.4 % (0.0-2.0); Eosinophils # (auto) 0 uL; Eosinophils % (auto) 0.3 % (0.0-7.0); Hematocrit 48.8 % (41.0-53.0); Hemoglobin 16.3 g/dL (13.5-17.5); Lymphocytes # (auto) 0.3 uL; Lymphocytes % (auto) 3.1 % (10.0-50.0); Mean Corpuscular Hemoglobin 29.6 pg (28.0-32.0); Mean Corpuscular Hgb Conc. 33.4 g/dL (32.0-36.0); Mean Corpuscular Volume 88.7 fL (80.0-100.0); Monocytes # (auto) 1.1 uL; Neutrophils # (auto) 7.8 uL; Neutrophils % (auto) 84.2 % (37.0-80.0); Nucleated Red Blood Cells % 0.1 %; Platelet Count (auto) 132 10^3/uL (140-450); Red Cell Distribution Width 15.3 % (11.8-14.3); White Blood Cell 9.3 10^3/uL (4.4-10.8)
[2018-12-15 17:18] LABS: INR 0.99 (0.9-1.15); Partial Thromboplastin Time 28.2 sec (23.78-33.04); Prothrombin Time 10.6 sec (9.27-12.13)
[2018-12-15 17:26] LABS: Albumin 3.7 g/dL (3.4-5.0); Anion Gap 7 (5-15); Blood Urea Nitrogen 21 mg/dL (7-18); Calcium 8.5 mg/dL (8.5-10.1); Carbon Dioxide 23 mmol/L (21-32); Chloride 114 mmol/L (98-107); Glucose 128 mg/dL (74-106); Magnesium 1.7 mg/dL (1.6-2.6); Potassium 3.5 mmol/L (3.5-5.1); Sodium 144 mmol/L (136-145)
[2018-12-15 17:29] LABS: Alanine Aminotransferase 25 U/L (16-61); Alkaline Phosphatase 75 U/L (45-117); Aspartate Aminotransferase 16 U/L (15-37); BUN/Creatinine Ratio 19.1; Bilirubin, Total 0.6 mg/dL (0.2-1.0); GFR African American 93 mL/min; GFR Non-African American 77 mL/min; Total Protein 6.9 g/dL (6.4-8.2)
[2018-12-15] MEDS ORDERED: ONDANSETRON HCL 4 MG/2 ML VIAL IV ONE (19:15)
[2018-12-15] MEDS ORDERED: MORPHINE SULFATE 4 MG/ML SYR/VIAL IV ONE ×2 (19:15→22:30)
[2018-12-15 23:51] VITALS: BP 167/116
== END 2018-12-16 01:01 | disposition short-term general hospital (02) ==
LOC: ER 16:27
DX: R07.89 Other chest pain (principal); I13.0 Hypertensive heart and chronic kidney disease with heart failure and stage 1 through stage 4 chronic kidney disease, or unspecified chronic kidney disease; N18.9 Chronic kidney disease, unspecified; I50.9 Heart failure, unspecified; I25.2 Old myocardial infarction; Z98.61 Coronary angioplasty status; Z90.89 Acquired absence of other organs; Z86.73 Personal history of transient ischemic attack (TIA), and cerebral infarction without residual deficits
CPT/HCPCS: 36415; 71046; 80053; 83735; 83880; 84484; 85025; 85610; 85730; 93005; 94761; 96374; 96375; 96376; 99285; J2270; J2405

== ENCOUNTER 2019-03-23 06:07 | Inpatient (IN) | payer OTHER ==
[~2019-03-23] VITALS: Ht 180.3 cm; Wt 121.6 kg
[2019-03-23 06:48] LABS: Hematocrit 45.3 % (41.0-53.0); Hemoglobin 15.3 g/dL (13.5-17.5); Mean Corpuscular Hemoglobin 30.5 pg (28.0-32.0); Mean Corpuscular Hgb Conc. 33.9 g/dL (32.0-36.0); Mean Corpuscular Volume 90.2 fL (80.0-100.0); Platelet Count (auto) 214 10^3/uL (140-450); Red Blood Cells 5.02 10^6/uL (4.5-5.90); Red Cell Distribution Width 15.1 % (11.8-14.3); White Blood Cell 6.1 10^3/uL (4.4-10.8)
[2019-03-23 06:58] LABS: Basophils % (manual) 0 (0.0-2.0); Blast Cells 0; Metamyelocytes % 0; Myelocytes % 0; Promyelocytes % 0; Reactive Lymphocytes 0
[2019-03-23] MEDS ORDERED: MORPHINE SULFATE 4 MG/ML SYR/VIAL IV ONE ×2 (07:00→10:30)
[2019-03-23] MEDS ORDERED: ONDANSETRON HCL 4 MG/2 ML VIAL IV ONE (07:00)
[2019-03-23 07:03] LABS: INR 1.01 (0.9-1.15); Partial Thromboplastin Time 27.8 sec (23.64-32.05)
[2019-03-23 07:13] LABS: Albumin 3.5 g/dL (3.4-5.0); Calcium 8.5 mg/dL (8.5-10.1); Magnesium 1.8 mg/dL (1.6-2.6); Potassium 3.3 mmol/L (3.5-5.1)
[2019-03-23 07:15] LABS: BUN/Creatinine Ratio 16.7
[2019-03-23] MEDS ORDERED: cloNIDine HCL 0.1 MG TAB PO ONE (07:15)
[2019-03-23 07:20] LABS: Bilirubin, Total 0.4 mg/dL (0.2-1.0)
[2019-03-23] MEDS ORDERED: ASPirin 81 mg TAB PO ONE (07:30)
[2019-03-23 08:13] LABS: Band Neutrophils % (manual) 1; Eosinophils % (manual) 17 (0-7); Lymphocytes % (manual) 19 (10.0-50.0); Monocytes % (manual) 12 (0-12)
[2019-03-23] MEDS ORDERED: NITROGLYCERIN 0.4 MG SL TAB SL ONE (09:45)
[2019-03-23] MEDS ORDERED: ENOXAPARIN SOD 120 MG/0.8 ML SYRINGE SC ONE (10:15)
[2019-03-23] MEDS ORDERED: POTASSIUM EFFERVESENT TAB 25 MEQ PO ONE ×2 (10:15→14:30)
[2019-03-23] MEDS ORDERED: FUROSEMIDE 40 MG/4 ML VIAL IV ONE (10:15)
[2019-03-23] MEDS ORDERED: NITROGLYCERIN 0.4 MG SL TAB SL PRN (11:15)
[2019-03-23] MEDS ORDERED: ACETAMINOPHEN 500 MG TAB PO PRN (11:15)
[2019-03-23] MEDS ORDERED: traMADol HCL 50 MG TAB PO PRN (11:15)
[2019-03-23] MEDS ORDERED: MORPHINE SULF INJ 2 MG/ML SYRINGE 1ML IV PRN (11:15)
[2019-03-23] MEDS ORDERED: PROMETHAZINE HCL 25 MG/ML 1ML IV PRN (11:15)
[2019-03-23] MEDS ORDERED: predniSONE 5 MG TAB PO ONE (12:00)
[2019-03-23 12:12] LABS: CRP High Sensitivity 0.44 mg/dL (< 0.3)
[2019-03-23] MEDS: SODIUM CHLOR 0.9% PF (SALINE LOCK) 10ML VIAL/SYR IV SCH ×2 (13:30→22:16)
[2019-03-23 14:39] VITALS: BP 114/82
[2019-03-23] MEDS ORDERED: PRAV20TA3 PO (14:58)
[2019-03-23] MEDS ORDERED: AML5T PO (14:58)
[2019-03-23] MEDS ORDERED: PRE1T PO (14:58)
[2019-03-23] MEDS ORDERED: TACR1GRA PO (14:58)
[2019-03-23] MEDS ORDERED: ASPI-231 PO (14:58)
[2019-03-23] MEDS ORDERED: MYCO250C PO (14:58)
[2019-03-23] MEDS: MORPHINE SULF INJ 2 MG/ML SYRINGE 1ML IV PRN ×2 (15:08→22:31)
[2019-03-23 17:00] VITALS: BP 119/80
[2019-03-23] MEDS ORDERED: SODIUM CHLORIDE 0.9% 1,000 ML IV SCH (18:40)
--- NOTE | 2019-03-23 19:43 | NUR ---
OPENING NOTES RECEIVED REPORT FROM DAY SHIFT NURSE. PT IS AWAKE, ALERT, AND ORIENTATED X 4 WITH NO S/S OF DISTRESS NOR PAIN. NO SOB NOTED. TOLD PT TO CALL FOR ASSISTANCE. BED IS IN LOWEST POSITIONS WITH SIDE RAILS UP X 2. BED BRAKES ARE LOCKED AND CALL LIGHT IS WITH IN REACH. WILL MONITOR Q 1HR.
[2019-03-23 20:00] VITALS: BP 123/71
[2019-03-23] MEDS ORDERED: ISOSORBIDE MONONITRATE ER 60 MG TAB PO SCH (22:00)
[2019-03-23] MEDS ORDERED: PRAVASTATIN SODIUM 20 MG TAB PO SCH (22:00)
[2019-03-23] MEDS ORDERED: ATORVASTATIN 20 MG TAB PO SCH (22:00)
[2019-03-23 22:07] VITALS: BP 139/83
[2019-03-23] MEDS: CARVEDILOL 12.5 MG TAB PO SCH (22:16)
[2019-03-23] MEDS: TACROLIMUS 1 MG CAP PO SCH (22:16)
[2019-03-23] MEDS: MYCOPHENOLATE 500 MG TAB PO SCH (22:16)
--- NOTE | 2019-03-24 00:01 | NUR ---
NPO PT NPO NOTHING BY MOUTH. PT VERBALIZED UNDERSTANDING.
--- NOTE | 2019-03-24 04:48 | NUR ---
ECG ECG DONE ON PATIENT MD ORDERED.
[2019-03-24 05:29] VITALS: BP 117/80
[2019-03-24] MEDS: MORPHINE SULF INJ 2 MG/ML SYRINGE 1ML IV PRN ×3 (05:48→16:36)
[2019-03-24] MEDS: SODIUM CHLOR 0.9% PF (SALINE LOCK) 10ML VIAL/SYR IV SCH ×2 (05:53→14:00)
[2019-03-24 06:33] LABS: Hematocrit 45.4 % (41.0-53.0); Hemoglobin 15.3 g/dL (13.5-17.5); Mean Corpuscular Hemoglobin 30.3 pg (28.0-32.0); Mean Corpuscular Hgb Conc. 33.6 g/dL (32.0-36.0); Platelet Count (auto) 193 10^3/uL (140-450); Red Blood Cells 5.04 10^6/uL (4.5-5.90); Red Cell Distribution Width 15.3 % (11.8-14.3)
[2019-03-24 06:37] LABS: Cholesterol 115 mg/dL (< 200); HDL Cholesterol 48 mg/dL (40-59); LDL Cholesterol 57 mg/dL (< 100); Triglycerides 71 mg/dL (< 150)
[2019-03-24 06:41] LABS: Partial Thromboplastin Time 29.2 sec (23.64-32.05)
[2019-03-24 06:45] LABS: Band Neutrophils % (manual) 0; Basophils % (manual) 0 (0.0-2.0); Blast Cells 0; Metamyelocytes % 0; Myelocytes % 0; Promyelocytes % 0; Reactive Lymphocytes 0
[2019-03-24 06:58] LABS: BUN/Creatinine Ratio 22.1; Calcium 8.6 mg/dL (8.5-10.1); Potassium 3.8 mmol/L (3.5-5.1)
[2019-03-24 07:57] LABS: Eosinophils % (manual) 13 (0-7); Lymphocytes % (manual) 37 (10.0-50.0); Monocytes % (manual) 4 (0-12)
[2019-03-24 08:00] VITALS: BP 145/91
--- NOTE | 2019-03-24 09:14 | NUR ---
Spoke to Ana Ferrer Patient chest pain to be managed with Nitro if Morphine is not working. Will medicate per orders.
[2019-03-24] MEDS ORDERED: PANTOPRAZOLE 40 MG TAB PO SCH (10:00)
[2019-03-24] MEDS: CARVEDILOL 12.5 MG TAB PO SCH (10:00)
[2019-03-24] MEDS ORDERED: SPIRONOLACTONE 25 MG TAB PO SCH (10:00)
[2019-03-24] MEDS ORDERED: CLOPIDOGREL BISULFATE 75 MG TAB PO SCH (10:00)
[2019-03-24] MEDS ORDERED: predniSONE 5 MG TAB PO SCH (10:00)
[2019-03-24] MEDS ORDERED: FUROSEMIDE 20 MG TAB PO SCH (10:00)
[2019-03-24] MEDS ORDERED: amLODIPine BESYLATE 5 MG TAB PO SCH (10:00)
[2019-03-24] MEDS ORDERED: LISINOPRIL 20 MG TAB PO SCH (10:00)
[2019-03-24] MEDS ORDERED: ASPirin 81 mg TAB PO SCH (10:00)
--- NOTE | 2019-03-24 10:00 | NUR ---
Patient refused Nitro sublingual for pain, he states "it doesn't work for me." Morphine given per orders.
--- NOTE | 2019-03-24 10:15 | NUR ---
Patient sent to [facility] for procedure.
[2019-03-24] MEDS ORDERED: LIDOCAINE 2%HCL (LOCAL ANESTH.) INJ 20ML MDV ONE (10:35)
[2019-03-24] MEDS ORDERED: IOHEXOL 350 MG/ML 100ML IJ ONE (10:35)
[2019-03-24] MEDS ORDERED: HEPARIN IN NS 1000Units/500mL 0 ML ONE (10:35)
[2019-03-24] MEDS ORDERED: methylPREDNISolone SOD SUCC 125 MG/2 ML VL IV ONE ×2 (11:30→17:00)
--- NOTE | 2019-03-24 11:30 | NUR ---
Patient returned from [facility], procedure cancelled Patient to be transferred to [facility] per Ana Ferrer, as soon as possible. Will try to get in touch with case operator.
--- NOTE | 2019-03-24 11:35 | NUR ---
Per Ana Ferrer Hold solumedrol until we are closer to transferring patient.
[2019-03-24 12:00] VITALS: BP 127/88
--- NOTE | 2019-03-24 12:59 | NUR ---
Contacted [facility] OURS department and spoke with Supervisor Engine Repair, Ed. Per Ed assigned [place] business case analyst is MCKENZIE. Ed is requesting clinical information and transfer order. Faxed clinical information, order for transfer, level of service and contact information for transferring Dr. Cherry COVINGTON ([phone]). Requested to speak with [facility] business case analyst, MCKENZIE, but was informed she was unable to speak with me until all faxed information was received.
[2019-03-24] MEDS: TACROLIMUS 1 MG CAP PO SCH (13:42)
[2019-03-24] MEDS: MYCOPHENOLATE 500 MG TAB PO SCH (13:42)
[2019-03-24 17:00] VITALS: BP 143/78
--- NOTE | 2019-03-24 17:05 | NUR ---
Spoke to Ana Ferrer Orders to give Solumedrol dose at this time, and to resume cardiac diet. Orders read back, and verified.
--- NOTE | 2019-03-24 17:10 | NUR ---
Spoke to Rashaun from Utilization Management from [facility] Patient going to [facility], Room 7326 Phone number: [phone] marble supervisor at 2000 accepting MD is Clifford Castorena Going to Critical Care Unit Any changes or concerns call Rashaun, telephonic nurse case manager
--- NOTE | 2019-03-24 19:05 | NUR ---
Report Given to Carlene GEORGE at [facility]. All questions answered.
--- NOTE | 2019-03-24 19:30 | NUR ---
Report given to ARIEL Ibanez NOC shift Transfer paperwork in patient chart, notified RN that signatures and HIPPA need to be completed.
--- NOTE | 2019-03-24 20:00 | NUR ---
PT TRANSFERRED TO [facility]IA AMBULANCE, CONSENT GIVEN AND SIGNATURES OBTAINED, REPORT/PAPERWORK DONE BY ARIEL CARTER ON AM SHIFT.
== END 2019-03-24 20:00 | disposition short-term general hospital (02) | DRG 280 ==
LOC: ER 06:07 → TELE 06:08 → TELE-WESTW 12:49
PROVIDERS: ADMIT Internal Medicine; ATTEND Internal Medicine Pulmonary Disease
DX: I21.4 Non-ST elevation (NSTEMI) myocardial infarction (principal); I50.43 Acute on chronic combined systolic (congestive) and diastolic (congestive) heart failure; I25.759 Atherosclerosis of native coronary artery of transplanted heart with unspecified angina pectoris; E87.6 Hypokalemia; E66.01 Morbid (severe) obesity due to excess calories; I11.0 Hypertensive heart disease with heart failure; E78.5 Hyperlipidemia, unspecified; Z82.49 Family history of ischemic heart disease and other diseases of the circulatory system; Z87.11 Personal history of peptic ulcer disease; Z86.73 Personal history of transient ischemic attack (TIA), and cerebral infarction without residual deficits; Z68.36 Body mass index [BMI] 36.0-36.9, adult; Z90.49 Acquired absence of other specified parts of digestive tract
CPT/HCPCS: 36415; 71045; 80048; 80053; 80061; 82550; 83735; 83880; 84443; 84484; 85007; 85027; 85379; 85610; 85652; 85730; 86141; 86850; 86900; 86901; 93306; G0378; J2405; J7507; J7517

== ENCOUNTER 2019-09-18 12:13 | Inpatient (IN) | payer OTHER ==
[~2019-09-18] VITALS: Ht 180.3 cm; Wt 120.0 kg
[~2019-09-18 12:13] MED LIST changes: -ALBU18 IN; +AML5T PO; +ASPI-231 PO; -ATOR10TA52 PO; -CAR125T PO; -CLOP75TA28 PO; -FUR40T PO; -ISOS30TA4 PO; -LIS20T PO; +MYCO250C PO; -NITR0.4S29 SL; +PRAV20TA3 PO; +PRE1T PO; -SPIR25TA8 PO; +TACR1GRA PO; -WARF6TAB21 PO
[2019-09-18] MEDS ORDERED: ONDANSETRON HCL 4 MG/2 ML VIAL IV ONE (12:30)
[2019-09-18] MEDS ORDERED: MORPHINE SULFATE 4 MG/ML SYR/VIAL IV ONE (12:30)
[2019-09-18 13:32] LABS: Basophils # (auto) 0 uL; Basophils % (auto) 0.6 % (0.0-2.0); Eosinophils # (auto) 0 uL; Eosinophils % (auto) 0.3 % (0.0-7.0); Hematocrit 41.7 % (41.0-53.0); Hemoglobin 13.6 g/dL (13.5-17.5); Lymphocytes # (auto) 0.6 uL; Lymphocytes % (auto) 12.2 % (10.0-50.0); Mean Corpuscular Hemoglobin 27.4 pg (28.0-32.0); Mean Corpuscular Hgb Conc. 32.6 g/dL (32.0-36.0); Mean Corpuscular Volume 84.1 fL (80.0-100.0); Monocytes # (auto) 0.5 uL; Neutrophils # (auto) 3.8 uL; Neutrophils % (auto) 75.9 % (37.0-80.0); Platelet Count (auto) 241 10^3/uL (140-450); Red Blood Cells 4.96 10^6/uL (4.5-5.90); Red Cell Distribution Width 16.1 % (11.8-14.3); White Blood Cell 4.9 10^3/uL (4.4-10.8)
[2019-09-18 13:49] LABS: Albumin 3.1 g/dL (3.4-5.0); BUN/Creatinine Ratio 16.2; Magnesium 1.3 mg/dL (1.6-2.6); Potassium 3.6 mmol/L (3.5-5.1)
[2019-09-18 13:53] LABS: Bilirubin, Total 0.6 mg/dL (0.2-1.0); Total Protein 6.2 g/dL (6.4-8.2)
[2019-09-18] MEDS ORDERED: OMEP-260 PO (17:00)
[2019-09-18] MEDS ORDERED: NITROGLYCERIN 0.4 MG SL TAB SL PRN (17:00)
[2019-09-18] MEDS ORDERED: FUROSEMIDE 40 MG/4 ML VIAL IV ONE (17:00)
[2019-09-18] MEDS ORDERED: AML5T PO (17:00)
[2019-09-18] MEDS ORDERED: FURO40TA4 PO (17:00)
[2019-09-18] MEDS ORDERED: EVER0.5T PO (17:00)
[2019-09-18] MEDS ORDERED: SULF800T7 PO (17:06)
[2019-09-18] MEDS ORDERED: METO25TA5 PO (17:06)
[2019-09-18] MEDS ORDERED: DABI150C5 PO (17:06)
[2019-09-18] MEDS: MORPHINE SULF INJ 2 MG/ML SYRINGE 1ML IV PRN ×2 (19:54→21:18)
[2019-09-18 20:42] VITALS: BP 102/71
[2019-09-18] MEDS: TACROLIMUS 1 MG CAP PO SCH (21:57)
[2019-09-18] MEDS: DABIGATRAN 75 MG CAP PO SCH (21:59)
[2019-09-18 22:00] VITALS: BP 114/80
[2019-09-18] MEDS: EVEROLIMUS 0.5 MG PO SCH (22:00)
[2019-09-18] MEDS ORDERED: CARVEDILOL 3.125 MG TAB PO SCH (22:00)
[2019-09-18] MEDS ORDERED: MYCOPHENOLATE 250 MG CAP PO SCH (22:00)
[2019-09-19] MEDS: MORPHINE SULF INJ 2 MG/ML SYRINGE 1ML IV PRN ×4 (04:42→17:58)
[2019-09-19 05:00] VITALS: BP 102/68
[2019-09-19 09:00] VITALS: BP 101/76
[2019-09-19] MEDS ORDERED: FUROSEMIDE 40 MG/4 ML VIAL IV ONE (09:45)
[2019-09-19] MEDS ORDERED: PRAVASTATIN SODIUM 20 MG TAB PO SCH (10:00)
[2019-09-19] MEDS: EVEROLIMUS 0.5 MG PO SCH (10:00)
[2019-09-19] MEDS ORDERED: predniSONE 5 MG TAB PO SCH (10:00)
[2019-09-19] MEDS ORDERED: PANTOPRAZOLE 40 MG TAB PO SCH (10:00)
[2019-09-19] MEDS ORDERED: MYCOPHENOLATE 500 MG TAB PO ONE (10:15)
[2019-09-19 10:28] LABS: BUN/Creatinine Ratio 13.8; Calcium 7.8 mg/dL (8.5-10.1); Potassium 3.6 mmol/L (3.5-5.1)
[2019-09-19] MEDS: DABIGATRAN 75 MG CAP PO SCH (11:23)
[2019-09-19] MEDS: TACROLIMUS 1 MG CAP PO SCH (11:24)
[2019-09-19 13:00] VITALS: BP 109/85
[2019-09-19 17:00] VITALS: BP 107/71
[2019-09-19] MEDS ORDERED: CARVEDILOL 3.125 MG TAB PO SCH (18:00)
[2019-09-19] MEDS ORDERED: MYCOPHENOLATE 500 MG TAB PO SCH (22:00)
[2019-09-20] MEDS ORDERED: SULFAMETHOX W/TRIMETH(800/160MG) DS TAB PO SCH (10:00)
== END 2019-09-19 19:20 | disposition short-term general hospital (02) | DRG 280 ==
LOC: ER 12:13 → EDBD 12:13 → TELE 12:14 → TELE-CENTR 20:29
PROVIDERS: ADMIT Nurse Practitioner Acute Care; ATTEND Internal Medicine
DX: I21.A1 Myocardial infarction type 2 (principal); I50.43 Acute on chronic combined systolic (congestive) and diastolic (congestive) heart failure; I13.0 Hypertensive heart and chronic kidney disease with heart failure and stage 1 through stage 4 chronic kidney disease, or unspecified chronic kidney disease; I25.759 Atherosclerosis of native coronary artery of transplanted heart with unspecified angina pectoris; I24.9 Acute ischemic heart disease, unspecified; E88.09 Other disorders of plasma-protein metabolism, not elsewhere classified; E66.01 Morbid (severe) obesity due to excess calories; N18.3 Chronic kidney disease, stage 3 (moderate); Z79.82 Long term (current) use of aspirin; Z82.49 Family history of ischemic heart disease and other diseases of the circulatory system; Z86.73 Personal history of transient ischemic attack (TIA), and cerebral infarction without residual deficits; Z87.11 Personal history of peptic ulcer disease
CPT/HCPCS: 36415; 71045; 80048; 80053; 83735; 83880; 84484; 85025; 87081; 93005; 96374; 96375; 96376; 99291; G0378; J2405; J7507; J7517

== ENCOUNTER 2019-11-07 15:19 | Inpatient (IN) | payer OTHER, SELFPAY ==
[2019-11-06] MEDS: MIDAZOLAM DRIP 50 mg/50mL 50 ML IV SCH (21:55)
[2019-11-06] MEDS: NOREPINEPHRINE 8 MG/250ML KIT 250 ML IV SCH (22:05)
[~2019-11-07] VITALS: Ht 210.8 cm; Wt 116.3 kg
[~2019-11-07 15:19] MED LIST changes: +DABI150C5 PO; +EVER0.5T PO; +FURO40TA4 PO; +METO25TA5 PO; +OMEP-260 PO; +SULF800T7 PO
[2019-11-07] MEDS ORDERED: MORPHINE SULFATE 4 MG/ML SYR/VIAL IV ONE (15:30)
[2019-11-07] MEDS ORDERED: ONDANSETRON HCL 4 MG/2 ML VIAL IV ONE (15:30)
[2019-11-07] MEDS ORDERED: FUROSEMIDE 40 MG/4 ML VIAL IV ONE (16:00)
[2019-11-07 16:02] LABS: Red Blood Cells 4.48 10^6/uL (4.5-5.90); White Blood Cell 7.4 10^3/uL (4.4-10.8)
[2019-11-07 16:03] LABS: Basophils # (auto) 0 10 ^3/uL (0-0.2); Basophils % (auto) 0.2 % (0.0-2.0); Eosinophils # (auto) 0 10 ^3/uL (0-0.8); Eosinophils % (auto) 0.3 % (0.0-7.0); Hematocrit 35.1 % (41.0-53.0); Lymphocytes # (auto) 0.7 10 ^3/uL (0.4-5.4); Mean Corpuscular Hemoglobin 26.8 pg (28.0-32.0); Mean Corpuscular Hgb Conc. 34.2 g/dL (32.0-36.0); Mean Corpuscular Volume 78.3 fL (80.0-100.0); Monocytes # (auto) 0.9 10 ^3/uL (0-1.3); Monocytes % (auto) 12.7 % (0.0-12.0); Neutrophils # (auto) 5.7 10 ^3/uL (1.6-8.6); Neutrophils % (auto) 77.8 % (37.0-80.0); Nucleated Red Blood Cells % 0.1 %; Platelet Count (auto) 83 10^3/uL (140-450); Red Cell Distribution Width 17.7 % (11.8-14.3)
[2019-11-07 16:06] LABS: Albumin 3.2 g/dL (3.4-5.0); Calcium 8.1 mg/dL (8.5-10.1); Magnesium 1.7 mg/dL (1.6-2.6); Potassium 3.3 mmol/L (3.5-5.1)
[2019-11-07 16:11] LABS: BUN/Creatinine Ratio 15.1; Bilirubin, Total 0.4 mg/dL (0.2-1.0); Total Protein 7.4 g/dL (6.4-8.2)
[2019-11-07] MEDS ORDERED: NITROGLYCERIN 0.4 MG SL TAB SL PRN (17:30)
[2019-11-07] MEDS ORDERED: MORPHINE SULF INJ 2 MG/ML SYRINGE 1ML IV PRN ×2 (17:30→19:00)
[2019-11-07] MEDS ORDERED: MYCO250C PO (18:25)
[2019-11-07] MEDS ORDERED: VANCOMYCIN PER PHARMACY 0 MG IV SCH (18:30)
[2019-11-07] MEDS: cefTRIAXone 1GM/50ML D5W 50 ML IV SCH (18:50)
[2019-11-07] MEDS ORDERED: HYDROcodone-ACET 5/325MG TAB PO PRN (19:00)
[2019-11-07] MEDS ORDERED: ONDANSETRON HCL 4 MG/2 ML VIAL IV PRN (19:00)
[2019-11-07] MEDS ORDERED: ACETAMINOPHEN 500 MG TAB PO PRN (19:00)
[2019-11-07] MEDS ORDERED: ZINC SULFATE 220mg CAP or TAB PO SCH (19:29)
[2019-11-07] MEDS ORDERED: CHOLECALCIFEROL (VITD3) 1,000UNIT=25mCg TAB PO SCH (19:30)
[2019-11-07] MEDS: AZITHROMYCIN 500MG/ 250ML 250 ML IV SCH (19:58)
[2019-11-07 20:39] LABS: CRP High Sensitivity 0.65 mg/dL (< 0.3)
[2019-11-07] MEDS ORDERED: PROPOFOL 100 ML IV SCH (20:44)
[2019-11-07] MEDS ORDERED: SUCCINYLCHOLINE CHLORIDE 20 MG/ML 10ML VIAL IV ONE ×2 (20:44→20:45)
[2019-11-07] MEDS ORDERED: ETOMIDATE (2MG/ML) 20ML VIAL IV ONE ×2 (20:44→20:45)
[2019-11-07 21:10] VITALS: BP 131/62
--- NOTE | 2019-11-07 21:10 | NUR ---
Respiratory note: PT INTUBATED BY DR BRO. BILATERAL CHEST RISE AND POSITIVE COLOR CHANGE ON CO2 DETECTOR NOTED. PLACED PT ON VENT V3, VENT CONNECTED TO RED OUTLET AND O2 SOURCE. ALARMS ARE SET AND AUDIBLE. AMBU BAG AND MASK AT BEDSIDE. BS ARE FINE COURSE SXD FOR THICK BLOODY SECRETIONS SPUTUM SAMPLE OBTAINED AND SENT TO LAB. PT WAS MOVED FROM BED ER 14 TO BED 2 DUE TO COVID-19 RULE OUT ISOLATION.
[2019-11-07] MEDS ORDERED: MIDAZOLAM DRIP 50 mg/50mL 50 ML IV ONE (21:53)
[2019-11-07] MEDS ORDERED: ASCORBIC ACID 500 MG TAB PO SCH (22:00)
[2019-11-07] MEDS: EVEROLIMUS 0.5 MG PO SCH (22:00)
[2019-11-07] MEDS: MYCOPHENOLATE 500 MG TAB PO SCH (22:00)
[2019-11-07] MEDS ORDERED: NOREPINEPHRINE 8 MG/250ML KIT 250 ML IV ONE (22:00)
[2019-11-07] MEDS: VANCOMYCIN 1GM/250ML 250 ML IV SCH (23:26)
[2019-11-07 23:49] VITALS: BP 104/73
--- NOTE | 2019-11-07 23:49 | NUR ---
Respiratory note: FIO2 TITRATED TO 30% VIA VENT POST ABG RESULTS.
[2019-11-08] VITALS (49 sets, daily range): BP systolic 95–122; BP diastolic 60–86
[2019-11-08] MEDS ORDERED: ACETAMINOPHEN 650 MG RECT SUPP PR ONE ×2 (01:15→07:30)
--- NOTE | 2019-11-08 04:00 | NUR ---
Respiratory note: AT BEDSIDE FOR END OF SHIFT VENT CHECK. PER PTS CXR TUBE WAS TO HIGH,ETT MOVED TO 26CMS AT THE LIP WITHOUT INCIDENT. TUBE SECURED VIA HOLISTER. END OF SHIFT VENT CHECK.WILL HAVE DAY SHIFT CONTINUE POC.
[2019-11-08] MEDS ORDERED: fentaNYL Drip 2500mCg/250mlNS 250 ML IV ONE (07:25)
[2019-11-08] MEDS: fentaNYL Drip 2500mCg/250mlNS 250 ML IV SCH (07:45)
[2019-11-08 09:21] LABS: Basophils # (auto) 0 10 ^3/uL (0-0.2); Eosinophils # (auto) 0 10 ^3/uL (0-0.8); Hemoglobin 11.1 g/dL (13.5-17.5); Monocytes # (auto) 0.7 10 ^3/uL (0-1.3); Neutrophils # (auto) 4.9 10 ^3/uL (1.6-8.6); Neutrophils % (auto) 80.3 % (37.0-80.0); White Blood Cell 6.1 10^3/uL (4.4-10.8)
[2019-11-08 09:23] LABS: Basophils % (auto) 0.4 % (0.0-2.0); Eosinophils % (auto) 0.6 % (0.0-7.0); Hematocrit 33.6 % (41.0-53.0); Lymphocytes # (auto) 0.5 10 ^3/uL (0.4-5.4); Lymphocytes % (auto) 7.4 % (10.0-50.0); Mean Corpuscular Hemoglobin 25.9 pg (28.0-32.0); Mean Corpuscular Hgb Conc. 32.9 g/dL (32.0-36.0); Mean Corpuscular Volume 78.6 fL (80.0-100.0); Monocytes % (auto) 11.3 % (0.0-12.0); Platelet Count (auto) 146 10^3/uL (140-450); Red Blood Cells 4.27 10^6/uL (4.5-5.90); Red Cell Distribution Width 17.7 % (11.8-14.3)
[2019-11-08] MEDS: VANCOMYCIN 1GM/250ML 250 ML IV SCH ×2 (09:26→22:01)
[2019-11-08] MEDS: cefTRIAXone 1GM/50ML D5W 50 ML IV SCH (09:26)
[2019-11-08 09:39] LABS: Albumin 2.8 g/dL (3.4-5.0); Calcium 8.1 mg/dL (8.5-10.1)
[2019-11-08 09:42] LABS: BUN/Creatinine Ratio 15.3; Bilirubin, Total 0.6 mg/dL (0.2-1.0); Total Protein 6.6 g/dL (6.4-8.2)
[2019-11-08 09:48] LABS: Potassium 2.9 mmol/L (3.5-5.1)
[2019-11-08] MEDS ORDERED: BUMETANIDE 1 MG TAB PO SCH (10:00)
[2019-11-08] MEDS ORDERED: APIXABAN 5 MG TAB PO SCH (10:00)
[2019-11-08] MEDS ORDERED: POTASSIUM EFFERVESENT TAB 25 MEQ PO SCH (10:00)
[2019-11-08] MEDS ORDERED: predniSONE 5 MG TAB PO SCH (10:00)
[2019-11-08] MEDS ORDERED: FAMOTIDINE 20 MG TAB PO SCH (10:00)
[2019-11-08] MEDS ORDERED: POTASSIUM CHLORIDE 40 MEQ, LIDOCAINE 1% (LOCAL ANESTH.) 4 ML in SODIUM CHL 0.9% 100 ML IV ONE ×2 (10:30→17:45)
[2019-11-08] MEDS ORDERED: ACETAMINOPHEN 650 mg PER 20 mL UD NG PRN (10:45)
[2019-11-08] MEDS ORDERED: predniSONE 5 MG TAB NG SCH (10:49)
[2019-11-08] MEDS ORDERED: HYDROcodone-ACET 5/325MG TAB NG PRN (11:00)
[2019-11-08] MEDS: EVEROLIMUS 0.5 MG PO SCH ×2 (11:34→22:22)
[2019-11-08] MEDS: MYCOPHENOLATE 500 MG TAB PO SCH ×2 (11:34→22:20)
[2019-11-08] MEDS: DOBUTamine 1000MCG/ML 250 ML IV SCH (11:35)
[2019-11-08] MEDS: ZINC SULFATE 220mg CAP or TAB NG SCH (11:35)
[2019-11-08] MEDS: CHOLECALCIFEROL (VITD3) 1,000UNIT=25mCg TAB NG SCH (11:36)
[2019-11-08] MEDS: FAMOTIDINE 20 MG TAB NG SCH (11:36)
[2019-11-08] MEDS: APIXABAN 5 MG TAB NG SCH ×2 (11:36→22:05)
[2019-11-08] MEDS: ASCORBIC ACID 500 MG TAB NG SCH ×2 (11:36→22:11)
[2019-11-08] MEDS ORDERED: POTASSIUM CHL 20MEQ/100ML 100 ML IV SCH (12:30)
--- NOTE | 2019-11-08 13:30 | NUR ---
RECEIVED FROM ED. ASSESSMENT COMPLETED. PT ON AIRBORNE PRECAUTIONS BEING TESTED FOR COVID 19. PT INTUBATED, SEDATED. PT ON HF, CURRENTLY ON DOBUTAMINE GTT AT 2.5 MCG/KG/MIN, LEVOPHED AT 3 MICG/MIN FOR BP SUPPORT , HR IN THE 140'S I WAS TOLD BY ED RN BOTH PRIMARY MD & HURRICANE TRACKER ARE BOTH AWARE. PT'S POTASSIUM BEING REPLACED.
--- NOTE | 2019-11-08 13:30 | NUR ---
Respiratory note: TRANSPORTED PT TO [facility] WITH FRUIT GRADER OPERATOR IN FULL PPE. PT WAS ON TRANSPORT VENTILATOR ON SETTINGS AC 16/550/+10/30%. AMBU BAG IS ON BED, CONNECTED TO AMBU BAG. NO INCIDENTS OCCURRED DURING TRANSPORT. PT WAS THEN PLACED ON VENTILATOR ON SETTINGS MENTIONED ABOVE.
[2019-11-08] MEDS ORDERED: TACROLIMUS 4 MG NG ONE (13:45)
--- NOTE | 2019-11-08 14:30 | NUR ---
TEXTED DR. GREGORIO TO CALL TO GET AN UPDATE ON PT'S CONDITION.
[2019-11-08 16:31] LABS: INR 1.15 (0.9-1.15)
[2019-11-08] MEDS: MIDAZOLAM DRIP 50 mg/50mL 50 ML IV SCH ×3 (16:51→22:52)
--- NOTE | 2019-11-08 17:00 | NUR ---
DR. GREGORIO ROUNDED ON PT. HE WANTS AN ADDITIONAL 40 MEQ OF KCL HE PREVIOUSLY ORDERED. I CALLED PHARMACY.
--- NOTE | 2019-11-08 18:00 | NUR ---
ARIEL VILLAFUERTE IN TO INSERT PICC LINE.
--- NOTE | 2019-11-08 18:00 | NUR ---
WOUND CARE NOTE: Added patient to wound care monitoring list due to low Jame score of 11 and intubation status putting patient to high risk for skin breakdown. Patient is 49 years old male with admitting diagnosis of Decompensated Heart Failure. Patient is resting in SDU bed in Rm. 266. Patient is intubated, sedated and mechanically ventilated. Patient is on airborne precautions, R/O CoVid19. Per patient's nurse, ARIEL Carvajal, patient has no wound, no pressure injury noted. Patient is receiving BID/PRN cleaning and application of Barrier cream to sacral buttocks as preventative. RECOMMENDATION: Nursing to continue with BID/PRN cleaning and application of Barrier cream to sacral buttocks as preventative per MD order, Dietary consult for low Jame score, frequent turning and repositioning schedule as condition permits, redistribute pressure points with pillows,elevate heels on pillow, continue monitoring by wound care while patient is mechanically ventilated.
[2019-11-08] MEDS: AZITHROMYCIN 500MG/ 250ML 250 ML IV SCH (18:44)
--- NOTE | 2019-11-08 19:00 | NUR ---
REPORT GIVEN TO ONCOMING NEW SHIFT.
[2019-11-08] MEDS ORDERED: FUROSEMIDE 20 MG/2 ML VIAL IV ONE (19:15)
--- NOTE | 2019-11-08 19:30 | NUR ---
REPORT RECEIVED, ASSUMED CARE.
--- NOTE | 2019-11-08 20:00 | NUR ---
PT FEBRILE, COOLING MEASURES INITIATED.
[2019-11-08 20:02] LABS: BUN/Creatinine Ratio 12.7; Calcium 7.3 mg/dL (8.5-10.1); Potassium 3.1 mmol/L (3.5-5.1)
[2019-11-08] MEDS ORDERED: LIDOCAINE 1% (LOCAL ANESTH.) PF 5ml SDV ID ONE (20:15)
--- NOTE | 2019-11-08 20:19 | NUR ---
PICC line placement Patient sedated. Patient's significant other educated on need for PICC line placement. All risks and benefits explained and all questions and concerns addressed prior to procedure. Noted past medical history and allergies with no contraindications. INR and Plt counts within acceptable range. 5fr PICC line inserted via left brachial vein using [employer]s [employer] US and Tip Location System. Sterile technique with maximum barrier precautions utilized. Blood return obtained from each of 3 lumens and each flushed easily with NS using proper technique. PICC secured with Stat-lock; biodisc and occlusive dressing applied. Stat portable chest x-ray obtained for PICC tip placement. *Baseline Arm Circumference 35cm. PICC lot #[id number]. Internal length 50cm External length 0cm
[2019-11-08] MEDS ORDERED: MYCOPHENOLATE 250 MG CAP PO SCH (22:00)
--- NOTE | 2019-11-08 22:00 | NUR ---
believe lab results contaminated ordered redraw for midnight post K= rider infusion.
[2019-11-08] MEDS: SODIUM CHLOR 0.9% PF (SALINE LOCK) 10ML VIAL/SYR IV SCH (22:02)
[2019-11-08] MEDS: HYDROCORTISONE SOD SUCC 100 MG/2ML INJ VIAL IV SCH (22:11)
[2019-11-08] MEDS: TACROLIMUS 4 MG NG SCH (22:23)
--- NOTE | 2019-11-08 22:52 | NUR ---
1ST VERSED GTT LEAKING OUT AROUND BOTTLE, HAD TO WASTE AND PULL ANOTHER VERSED GTT.
[2019-11-09] VITALS (101 sets, daily range): BP systolic 88–136; BP diastolic 23–90
--- NOTE | 2019-11-09 00:10 | NUR ---
COOLING MEASURES REMOVED.
[2019-11-09 00:48] LABS: BUN/Creatinine Ratio 13.3; Potassium 3.7 mmol/L (3.5-5.1)
[2019-11-09] MEDS: fentaNYL Drip 2500mCg/250mlNS 250 ML IV SCH ×2 (01:08→13:25)
[2019-11-09] MEDS: NOREPINEPHRINE 8 MG/250ML KIT 250 ML IV SCH ×2 (01:41→23:12)
[2019-11-09] MEDS: DOBUTamine 1000MCG/ML 250 ML IV SCH ×2 (02:46→18:11)
[2019-11-09] MEDS: MIDAZOLAM DRIP 50 mg/50mL 50 ML IV SCH (02:49)
[2019-11-09 05:45] LABS: Basophils # (auto) 0 10 ^3/uL (0-0.2); Basophils % (auto) 0.2 % (0.0-2.0); Eosinophils # (auto) 0 10 ^3/uL (0-0.8); Eosinophils % (auto) 0.1 % (0.0-7.0); Hematocrit 32.2 % (41.0-53.0); Hemoglobin 10.6 g/dL (13.5-17.5); Lymphocytes # (auto) 0.2 10 ^3/uL (0.4-5.4); Lymphocytes % (auto) 3.8 % (10.0-50.0); Mean Corpuscular Hemoglobin 25.8 pg (28.0-32.0); Mean Corpuscular Hgb Conc. 32.8 g/dL (32.0-36.0); Mean Corpuscular Volume 78.7 fL (80.0-100.0); Monocytes # (auto) 0.3 10 ^3/uL (0-1.3); Monocytes % (auto) 7.4 % (0.0-12.0); Neutrophils # (auto) 4.1 10 ^3/uL (1.6-8.6); Neutrophils % (auto) 88.5 % (37.0-80.0); Platelet Count (auto) 106 10^3/uL (140-450); Red Blood Cells 4.09 10^6/uL (4.5-5.90); White Blood Cell 4.7 10^3/uL (4.4-10.8)
[2019-11-09 05:55] LABS: Albumin 2.6 g/dL (3.4-5.0); Calcium 7.9 mg/dL (8.5-10.1)
[2019-11-09 05:58] LABS: BUN/Creatinine Ratio 12.1; Bilirubin, Total 0.6 mg/dL (0.2-1.0); Total Protein 6.1 g/dL (6.4-8.2)
[2019-11-09] MEDS: VANCOMYCIN 1GM/250ML 250 ML IV SCH (08:00)
[2019-11-09] MEDS ORDERED: PROPOFOL 100 ML IV ONE (08:33)
[2019-11-09] MEDS: cefTRIAXone 1GM/50ML D5W 50 ML IV SCH (08:56)
[2019-11-09] MEDS: PROPOFOL 100 ML IV SCH ×2 (09:41→21:46)
--- NOTE | 2019-11-09 09:50 | NUR ---
DR. MCKEON HERE TO SEE PATIENT. SEE MD NOTES AND EMR FOR ANY NEW ORDERS.
[2019-11-09] MEDS: FAMOTIDINE 20 MG TAB NG SCH (10:00)
[2019-11-09] MEDS: CHOLECALCIFEROL (VITD3) 1,000UNIT=25mCg TAB NG SCH (10:00)
[2019-11-09] MEDS: TACROLIMUS 4 MG NG SCH ×2 (10:00→21:46)
[2019-11-09] MEDS: HYDROCORTISONE SOD SUCC 100 MG/2ML INJ VIAL IV SCH ×2 (10:00→21:46)
[2019-11-09] MEDS: SODIUM CHLOR 0.9% PF (SALINE LOCK) 10ML VIAL/SYR IV SCH ×2 (10:00→21:46)
[2019-11-09] MEDS: EVEROLIMUS 0.5 MG PO SCH ×2 (10:00→21:46)
[2019-11-09] MEDS: ASCORBIC ACID 500 MG TAB NG SCH ×2 (10:00→21:46)
[2019-11-09] MEDS: ZINC SULFATE 220mg CAP or TAB NG SCH (10:00)
[2019-11-09] MEDS: FUROSEMIDE 20 MG/2 ML VIAL IV SCH (10:00)
[2019-11-09] MEDS: APIXABAN 5 MG TAB NG SCH ×2 (10:00→21:46)
--- NOTE | 2019-11-09 12:13 | NUR ---
DR. LARSON HERE TO SEE PATIENT. SEE MD NOTES AND EMR FOR ANY NEW ORDERS.
--- NOTE | 2019-11-09 13:25 | NUR ---
8124 11/09/19 I received a call from Dr. Garcia requesting to transfer this patient to [facility] due to history of heart transplant. I let her know that [facility] is not accepting any [facility] or ICU transfers at this time-but that I would contact them. I called [facility] [phone] and spoke with commercial analyst Janet-requested to speak with Work Station Support Specialist Kiki regarding transfer request. Per Janet she is on the other line-she will give her the message and have her call me back.
--- NOTE | 2019-11-09 13:43 | NUR ---
URINALYSIS SENT TO LAB PER MD ORDER.
[2019-11-09 14:01] LABS: Urine Bacteria FEW /hpf (None Seen); Urine Blood 1+ /uL (Negative); Urine Hyaline Cast FEW /lpf (0 - 2); Urine Specific Gravity 1.014 (1.001-1.035); Urine WBC 6 /hpf (0 - 3)
[2019-11-09 14:07] LABS: Protein, Urine 90.9 mg/dL (0.0-11.9)
--- NOTE | 2019-11-09 14:45 | NUR ---
Nutrition Assessment Notes Please refer to link for full assessment notes. Est energy needs: 6654-9589 kcals (25-30 kcal/kgAdjBW) d/t heart failure, CKD Est protein needs: 81-108 gms/day (0.75-1.0 gm/kgBW) d/t heart failure, CKD Will continue to monitor and reassess prn. Addendum: 11/09/19 at [address] Amended: Links added.
--- NOTE | 2019-11-09 14:55 | NUR ---
DR. ROSEN HERE TO SEE PATIENT. SEE MD NOTES AND EMR FOR ANY NEW ORDERS.
--- NOTE | 2019-11-09 15:45 | NUR ---
NICOL RIDER MADE AWARE THAT PATIENTS ET TUBE IS 5 CM ABOVE THE RAN.
--- NOTE | 2019-11-09 16:34 | NUR ---
[id number] 11/09/19 I contacted [facility] [phone] and spoke with sales and marketing analyst Vanesa regarding Dr. Garcia's request to transfer this patient to [facility] due to history of heart transplant. Per Vanesa-Power Plant Technician is not available at this time, she did give her the first message-she will give her a second message to call me back regarding this request.
[2019-11-09] MEDS: PIPERACILLIN-TAZOB 2.25GM 50 ML IV SCH (17:53)
[2019-11-09] MEDS: MYCOPHENOLATE 1000mg/5ml ORALsusp 200mg/ml NG SCH (21:46)
[2019-11-10] VITALS (92 sets, daily range): BP systolic 94–127; BP diastolic 55–85
[2019-11-10] MEDS: PIPERACILLIN-TAZOB 2.25GM 50 ML IV SCH ×4 (00:07→22:09)
[2019-11-10 03:57] LABS: Basophils # (auto) 0 10 ^3/uL (0-0.2); Basophils % (auto) 0.1 % (0.0-2.0); Eosinophils # (auto) 0 10 ^3/uL (0-0.8); Hematocrit 31.4 % (41.0-53.0); Hemoglobin 10.5 g/dL (13.5-17.5); Lymphocytes # (auto) 0.2 10 ^3/uL (0.4-5.4); Mean Corpuscular Hemoglobin 26.2 pg (28.0-32.0); Mean Corpuscular Hgb Conc. 33.4 g/dL (32.0-36.0); Mean Corpuscular Volume 78.4 fL (80.0-100.0); Monocytes # (auto) 0.3 10 ^3/uL (0-1.3); Monocytes % (auto) 5.2 % (0.0-12.0); Neutrophils # (auto) 4.4 10 ^3/uL (1.6-8.6); Neutrophils % (auto) 90.7 % (37.0-80.0); Platelet Count (auto) 121 10^3/uL (140-450); Red Cell Distribution Width 18.1 % (11.8-14.3); White Blood Cell 4.8 10^3/uL (4.4-10.8)
[2019-11-10 04:13] LABS: BUN/Creatinine Ratio 9.9; Calcium 8.4 mg/dL (8.5-10.1); Potassium 4.6 mmol/L (3.5-5.1)
[2019-11-10] MEDS: DOBUTamine 1000MCG/ML 250 ML IV SCH (09:00)
--- NOTE | 2019-11-10 09:58 | NUR ---
DR ALANIS AT BEDSIDE, NEW ORDERS RECEIVED
[2019-11-10] MEDS ORDERED: PIPERACILLIN-TAZOB 2.25GM 50 ML IV SCH (10:00)
[2019-11-10 10:21] LABS: Urine Amorphous Crystal FEW /hpf (None Seen); Urine Bacteria FEW /hpf (None Seen); Urine Blood 2+ /uL (Negative); Urine Hyaline Cast FEW /lpf (0 - 2); Urine Specific Gravity 1.015 (1.001-1.035); Urine WBC 3 /hpf (0 - 3)
[2019-11-10] MEDS: FUROSEMIDE 20 MG/2 ML VIAL IV SCH (11:40)
[2019-11-10] MEDS: HYDROCORTISONE SOD SUCC 100 MG/2ML INJ VIAL IV SCH (11:40)
[2019-11-10] MEDS: SODIUM CHLOR 0.9% PF (SALINE LOCK) 10ML VIAL/SYR IV SCH ×2 (11:40→22:08)
[2019-11-10] MEDS: ASCORBIC ACID 500 MG TAB NG SCH ×2 (11:41→22:09)
[2019-11-10] MEDS: FAMOTIDINE 20 MG TAB NG SCH (11:41)
[2019-11-10] MEDS: APIXABAN 5 MG TAB NG SCH ×2 (11:41→22:09)
[2019-11-10] MEDS: EVEROLIMUS 0.5 MG PO SCH ×2 (11:42→22:09)
[2019-11-10] MEDS: ZINC SULFATE 220mg CAP or TAB NG SCH (11:42)
[2019-11-10] MEDS: MYCOPHENOLATE 1000mg/5ml ORALsusp 200mg/ml NG SCH ×2 (11:46→22:09)
[2019-11-10] MEDS: TACROLIMUS 4 MG NG SCH ×2 (11:47→22:09)
[2019-11-10] MEDS: fentaNYL Drip 2500mCg/250mlNS 250 ML IV SCH (13:07)
--- NOTE | 2019-11-10 15:12 | NUR ---
assessment re: ernesto consult heart transplant, intubated, r/o covid 19 Patient is a 49 year old male who is on a vent in [facility]. Per patients mother Cristiana [phone] prior to admission patient lived home alone and was independent. Per Cristiana patients PCP is Dr Gordon at [facility]. Cristiana informed me patient has good family support. Cristiana informed me patient heart transplant was a little over a year ago at the [facility]. Per Cristiana she agrees to transfer to [facility]. Patient tested Covid negative. I informed Cristiana if patient stays here we would discharge plan after extubation and prior to discharge. Cristiana verbalized understanding. Addendum: 11/10/19 at 1518 by Madhuri PALMER Amended: Links added.
--- NOTE | 2019-11-10 16:01 | NUR ---
PER DR LARSON, RN TO VERIFY ANTI-REJECTION HOME MEDICATIONS. PER MOTHER MARVIN SHE DOES NOT KNOW HOME MEDICATIONS. RN WILL CALL [facility] FOR HOME MEDICATIONS.
[2019-11-10] MEDS ORDERED: FUROSEMIDE INJECTION 100 MG in D5W 5% 100 ML IV SCH (16:30)
[2019-11-10] MEDS ORDERED: LISI-275 PO (17:27)
[2019-11-10] MEDS ORDERED: BUME1TAB28 PO (17:27)
[2019-11-10] MEDS ORDERED: APIX5TAB PO (17:27)
--- NOTE | 2019-11-10 17:27 | NUR ---
SPOKE WITH [facility] PHARMACIST, VERIFIED HOME MEDS. PATIENT HOME MEDS INCLUDED ZORTRESS/CELL CEPT BUT PROGRAF DC'D ON 11/01 AT [facility]. HOME MED RECONCILIATION COMPLETED
[2019-11-10] MEDS: CHOLECALCIFEROL (VITD3) 1,000UNIT=25mCg TAB NG SCH (17:29)
[2019-11-10] MEDS: PROPOFOL 100 ML IV SCH ×2 (17:38→22:10)
[2019-11-10] MEDS: ACCU-CHEK COMFORT CURVE STRIP VI SCH ×3 (17:50→23:53)
--- NOTE | 2019-11-10 18:19 | NUR ---
Respiratory note: RECEIVED PT ON VENT V3, VENT CONNECTED TO RD OUTLET AND O2 SOURCE, ALARMS ARE SET AND AUDIBLE. AMBU BAG AND MASK AT BEDSIDE BS ARE FINE COURSE SXD SCANT ROWLAND/WHITE. PTS CURRENT TEMP IS 98.2F. RT NAME AND PAGER ASSIGNMENT WRITTEN ON PTS ROOM BOARD. WILL CONTINUE TO MONITOR Q2H.
--- NOTE | 2019-11-10 19:25 | NUR ---
REPORT GIVEN TO LANETTE GEORGE, ULTRASOUND AT BEDSIDE FOR RENAL US.
--- NOTE | 2019-11-10 19:30 | NUR ---
OPENING SHIFT RECEIVED REPORT FROM DAY SHIFT RN. ASSUMED CARE OF PATIENT. PATIENT INTUBATED AND SEDATED WITH NO SIGNS OR SYMPTOMS OF SOB, PAIN OR DISTRESS. 02 SAT - 100%. LEFT UPPER ARM PIC TLC, RIGHT / LEFT THUMB IV, AND LEFT FOREARM IV - CLEAN/DRY/INTACT. NUR HUNG TO GRAVITY. SEDATION: PROPOFOL - 25MCG/KG/MIN FENTANYL - 200MCG/HR VASOPRESSOR: DOBUTAMINE - 2.5MCG/KG/MIN (SET RATE) LASIX GTT: 5.5ML/HR (SET RATE) REPOSITIONED FOR COMFORT. BED IN LOWEST POSITION, SIDE RAILS UP X2. WILL CONTINUE TO MONITOR.
--- NOTE | 2019-11-10 20:16 | NUR ---
Respiratory note: AT BEDSIDE FOR ROUTINE VENT CHECK. NO CHANGES MADE AT THIS TIME, WILL CONTINUE TO MONITOR. PTS CURRENT TEMP IS 98.4F.
--- NOTE | 2019-11-10 21:40 | NUR ---
Respiratory note: ETT ADVANCED TO 28CM AT THE LIP. RN LANETTE ROSALES COMMUNICATED ON ETT CHANGE. SUGGESTED TO RN FOLLOW UP CXR TO CONFIRM CURRENT ETT PLACEMENT.
--- NOTE | 2019-11-10 21:40 | NUR ---
RT AT BEDSIDE ADVANCED ET TUBE TO 28CM. CXR ORDERED PER PROTOCOL. WILL CONTINUE TO MONITOR.
--- NOTE | 2019-11-10 22:17 | NUR ---
Respiratory note: AT BEDSIDE FOR ROUTINE VENT CHECK. NO CHANGES MADE AT THIS TIME, WILL CONTINUE TO MONITOR. PTS CURRENT TEMP IS 98.4F. ETT WAS ADVANCED TO 28CM AT THE LIP WITHOUT INCIDENT @21:40 DUE TO LAST CXR READING AT ABOUT 9CM ABOVE RAN. TUBE POSITION CONFIRMED POST CXR NOW AT ABOUT 3CMS ABOVE RAN. ARIEL GAMA IS AWARE OF ALL CHANGES.
--- NOTE | 2019-11-10 22:28 | NUR ---
PICC LINE DRESSING CHANGED
[2019-11-10] MEDS: NOREPINEPHRINE 8 MG/250ML KIT 250 ML IV SCH (23:12)
[2019-11-10] MEDS: MIDAZOLAM DRIP 50 mg/50mL 50 ML IV SCH (23:12)
[2019-11-11] VITALS (83 sets, daily range): BP systolic 95–127; BP diastolic 50–78
--- NOTE | 2019-11-11 00:03 | NUR ---
Respiratory note: AT BEDSIDE FOR ROUTINE VENT CHECK. NO CHANGES MADE AT THIS TIME, WILL CONTINUE TO MONITOR. PTS CURRENT TEMP IS 98.2F.
[2019-11-11] MEDS: fentaNYL Drip 2500mCg/250mlNS 250 ML IV SCH ×2 (01:13→14:01)
--- NOTE | 2019-11-11 02:19 | NUR ---
Respiratory note: AT BEDSIDE FOR ROUTINE VENT CHECK. NO CHANGES MADE AT THIS TIME, WILL CONTINUE TO MONITOR. SXD FOR SCANT THICK ROWLAND VIA ETT. PTS CURRENT TEMP IS 98.2F.
[2019-11-11] MEDS: PROPOFOL 100 ML IV SCH ×4 (02:25→18:09)
[2019-11-11] MEDS: DOBUTamine 1000MCG/ML 250 ML IV SCH ×2 (02:25→16:30)
--- NOTE | 2019-11-11 03:15 | NUR ---
MORNING CARE PERFORMED MORNING CARE WITH CHG WIPES AND WASH CLOTHS TO THE FACE. PARTIAL LINEN CHANGE AND GOWN CHANGED. REPOSITIONED FOR COMFORT. SKIN REASSESSED AT THIS TIME. ORAL AND NUR CARE PERFORMED. BED IN LOWEST POSITION, SIDE RAILS UP X2. WILL CONTINUE TO MONITOR.
[2019-11-11] MEDS: ACCU-CHEK COMFORT CURVE STRIP VI SCH ×5 (04:00→20:00)
--- NOTE | 2019-11-11 04:16 | NUR ---
Respiratory note: AT BEDSIDE FOR END OF SHIFT VENT CHECK. PTS CURRENT TEMP IS 98.4F. WILL HAVE DAY SHIFT CONTINUE TO POC.
[2019-11-11] MEDS: PIPERACILLIN-TAZOB 2.25GM 50 ML IV SCH ×3 (06:01→23:28)
[2019-11-11 06:39] LABS: Basophils # (auto) 0 10 ^3/uL (0-0.2); Basophils % (auto) 0.2 % (0.0-2.0); Eosinophils # (auto) 0 10 ^3/uL (0-0.8); Hemoglobin 10.4 g/dL (13.5-17.5); Lymphocytes # (auto) 0.5 10 ^3/uL (0.4-5.4); Mean Corpuscular Volume 77.9 fL (80.0-100.0); Monocytes # (auto) 0.6 10 ^3/uL (0-1.3); White Blood Cell 4.4 10^3/uL (4.4-10.8)
[2019-11-11 06:41] LABS: Eosinophils % (auto) 0.8 % (0.0-7.0); Lymphocytes % (auto) 11.1 % (10.0-50.0); Mean Corpuscular Hemoglobin 26.1 pg (28.0-32.0); Mean Corpuscular Hgb Conc. 33.4 g/dL (32.0-36.0); Neutrophils # (auto) 3.3 10 ^3/uL (1.6-8.6); Neutrophils % (auto) 74.9 % (37.0-80.0); Platelet Count (auto) 131 10^3/uL (140-450); Red Blood Cells 3.97 10^6/uL (4.5-5.90); Red Cell Distribution Width 18.5 % (11.8-14.3)
[2019-11-11 06:49] LABS: BUN/Creatinine Ratio 9.1; Calcium 8.5 mg/dL (8.5-10.1); Potassium 4.1 mmol/L (3.5-5.1)
--- NOTE | 2019-11-11 07:25 | NUR ---
END OF SHIFT REPORT GIVEN TO DAY SHIFT. CARE ENDORSED.
--- NOTE | 2019-11-11 07:30 | NUR ---
ASSESS- PT. LYING IN BED ON VENT SIZE # 8.0 ET, 28 AT THE LIP, AC-16, TV-550, PEEP-10, FIO2-30%. LUNGS CLEAR WEN. INSPIRATORY AND EXPIRATORY, DIMINISHED THROUGHOUT. PT. HAS GAG/COUGH REFLEX. RESPONDS TO PAINFUL/TACTILE STIMULI. NO MOVEMENT OF EXTREMITIES SEEN. WEN. HAND MITTENS IN PLACE TO PREVENT PULLING OF TUBES. ON PROPOFOL GTT. AT 25 MCG. AND FENTANYL GTT. AT 200 MCG. PICC TLC SAN[place]H INTACT. ON DOBUTAMINE GTT. AT 2.5 MCG. SET DOSE. ON LASIX GTT. AT 5MG./HR. F/C TO GRAVITY WITH SM. AMOUNT CLEAR DK. KRISSY URINE. NGT RT. NARE CLAMPED, NPO. ABD. SOFT, FLAT. BOWEL SOUNDS ALL FOUR QUADRANTS. SKIN INTACT. 1 PLUS EDEMA RT. ARM. LT. ARM WITH 2 PLUS EDEMA. RECTAL PROBE IN PLACE. ST, HR 120'S WITHOUT ECTOPY. RADIAL PULSES STRONG, PALPABLE WEN. DORSALIS PEDAL PULSES STRONG, PALPABLE WEN.
[2019-11-11] MEDS: CHOLECALCIFEROL (VITD3) 1,000UNIT=25mCg TAB NG SCH (10:00)
[2019-11-11] MEDS: SODIUM CHLOR 0.9% PF (SALINE LOCK) 10ML VIAL/SYR IV SCH ×2 (10:00→23:32)
[2019-11-11] MEDS: APIXABAN 5 MG TAB NG SCH (10:34)
[2019-11-11] MEDS: HYDROCORTISONE SOD SUCC 100 MG/2ML INJ VIAL IV SCH (10:34)
[2019-11-11] MEDS: TACROLIMUS 4 MG NG SCH (10:35)
[2019-11-11] MEDS: FAMOTIDINE 20 MG TAB NG SCH (10:35)
[2019-11-11] MEDS: EVEROLIMUS 0.5 MG PO SCH ×2 (10:36→22:00)
[2019-11-11] MEDS: ASCORBIC ACID 500 MG TAB NG SCH ×2 (10:36→23:31)
[2019-11-11] MEDS: ZINC SULFATE 220mg CAP or TAB NG SCH (10:37)
[2019-11-11] MEDS: MYCOPHENOLATE 1000mg/5ml ORALsusp 200mg/ml NG SCH ×2 (10:38→23:32)
--- NOTE | 2019-11-11 11:10 | NUR ---
DR. ALANIS Provider/Hospitalist at bedside. GAVE UPDATE ON PT. NEW ORDERS RECEIVED.
[2019-11-11] MEDS: BUMETANIDE INJECTION 25 MG in GIVE UN-DILUTED 0 ML IV SCH (11:51)
--- NOTE | 2019-11-11 12:10 | NUR ---
DR. Guy POLANCO Provider/Hospitalist at bedside. GAVE UPDATE ON PT.
--- NOTE | 2019-11-11 12:56 | NUR ---
Called/paged Dr. WILKERSON called re:. CONNECTED TO CELL PHONE. NEW ORDER RECEIVED. Continue care.
--- NOTE | 2019-11-11 14:45 | NUR ---
IV removal IV DC'd with clean sterile technique, catheter fully intact. Pressure dressing applied to site. Patient tolerated well. NOTE: LT. FOREARM SWOLLEN, D'C'D [address] GAUGE LT. FOREARM.
--- NOTE | 2019-11-11 16:44 | NUR ---
DR. MAGANA Provider/Hospitalist at bedside. GAVE UPDATE ON PT. NEW ORDERS RECEIVED.
--- NOTE | 2019-11-11 18:04 | NUR ---
Respiratory note: Received pt on vent v3, vent connected to red outlet and o2 source. alarms are set and audible. ambu bag and mask at bedside. bs are fine course/ diminished t/o sxd for scant thin white/ campuzano secretions. no changes made. pts current temp is 98.4f. will continue to monitor.
--- NOTE | 2019-11-11 19:45 | NUR ---
Opening Shift Note Assumed care of patient. No S/S of distress/SOB or pain. Pt on vent and resting comfortably, will continue to monitor for changes Q1hr and PRN.
--- NOTE | 2019-11-11 20:23 | NUR ---
Respiratory note: AT BEDSIDE FOR ROUTINE VENT CHECK. NO CHANGES DONE. CURRENT TEMP IS 98.1. WILL CONTINUE TO MONITOR.
--- NOTE | 2019-11-11 22:19 | NUR ---
Respiratory note: AT BEDSIDE FOR ROUTINE VENT CHECK. NO CHANGES DONE. CURRENT TEMP IS 98.1. WILL CONTINUE TO MONITOR.
[2019-11-11] MEDS: MIDAZOLAM DRIP 50 mg/50mL 50 ML IV SCH (23:12)
[2019-11-11] MEDS: NOREPINEPHRINE 8 MG/250ML KIT 250 ML IV SCH (23:12)
[2019-11-12] VITALS (79 sets, daily range): BP systolic 93–131; BP diastolic 58–93
--- NOTE | 2019-11-12 00:06 | NUR ---
Respiratory note: AT BEDSIDE FOR ROUTINE VENT CHECK. NO CHANGES DONE. CURRENT TEMP IS 97.9F. WILL CONTINUE TO MONITOR.
[2019-11-12] MEDS: PROPOFOL 100 ML IV SCH ×4 (00:32→11:20)
[2019-11-12] MEDS: fentaNYL Drip 2500mCg/250mlNS 250 ML IV SCH ×2 (01:48→13:34)
[2019-11-12] MEDS: ACCU-CHEK COMFORT CURVE STRIP VI SCH ×6 (04:00→20:00)
[2019-11-12] MEDS: PIPERACILLIN-TAZOB 2.25GM 50 ML IV SCH ×3 (05:22→22:54)
[2019-11-12 06:06] LABS: Basophils # (auto) 0 10 ^3/uL (0-0.2); Eosinophils # (auto) 0 10 ^3/uL (0-0.8); Lymphocytes # (auto) 0.3 10 ^3/uL (0.4-5.4); Monocytes # (auto) 0.5 10 ^3/uL (0-1.3); Neutrophils # (auto) 2.4 10 ^3/uL (1.6-8.6); White Blood Cell 3.2 10^3/uL (4.4-10.8)
[2019-11-12 06:08] LABS: Basophils % (auto) 0.1 % (0.0-2.0); Eosinophils % (auto) 0.9 % (0.0-7.0); Hemoglobin 10.4 g/dL (13.5-17.5); Lymphocytes % (auto) 10.4 % (10.0-50.0); Mean Corpuscular Hemoglobin 26.3 pg (28.0-32.0); Mean Corpuscular Hgb Conc. 33.6 g/dL (32.0-36.0); Mean Corpuscular Volume 78.3 fL (80.0-100.0); Monocytes % (auto) 14.4 % (0.0-12.0); Neutrophils % (auto) 74.2 % (37.0-80.0); Platelet Count (auto) 113 10^3/uL (140-450); Red Blood Cells 3.96 10^6/uL (4.5-5.90); Red Cell Distribution Width 18.2 % (11.8-14.3)
[2019-11-12 06:17] LABS: INR 1.01 (0.9-1.15)
[2019-11-12 06:19] LABS: BUN/Creatinine Ratio 9.2; Calcium 8.5 mg/dL (8.5-10.1); Potassium 4.1 mmol/L (3.5-5.1)
--- NOTE | 2019-11-12 07:00 | NUR ---
Pt remained stable this shift. No S/S of distress. POM Zortress not in Pyxis. Informed pharmacy last night's dose was missed, pharmacy stated no more medication available at this time. Report given to AM shift, care endorsed.
[2019-11-12] MEDS: DOBUTamine 1000MCG/ML 250 ML IV SCH (07:35)
--- NOTE | 2019-11-12 07:35 | NUR ---
ASSESS- PT. LYING IN BED ON VENT SIZE # 8.0 ET, 28 AT THE LIP, AC-16, TV-550, PEEP-10, FIO2-30%. LUNGS CLEAR WEN. INSPIRATORY AND EXPIRATORY, DIMINISHED THROUGHOUT. PT. HAS GAG/COUGH REFLEX. RESPONDS TO PAINFUL/TACTILE STIMULI. ON FENTANYL GTT. AT 200 MCG. AND PROPOFOL GTT. AT 25 MCG. NO MOVEMENT OF EXTREMITIES SEEN. DOES NOT FOLLOW ANY COMMANDS. ABD. SOFT, FLAT. BOWEL SOUNDS ALL FOUR QUADRANTS. NGT RT. NARE CLAMPED, PT. IS NPO. F/C TO GRAVITY WITH CLEAR DK. KRISSY URINE. RADIAL PULSES WEAK, PALPABLE WEN. 2 PLUS EDEMA UPPER EXTREMITIES WEN. DORSALIS PEDAL PULSES WEAK, PALPABLE WEN. SKIN INTACT. PICC LT. UPPER ARM TLC INTACT. BUMEX GTT. AT 4ML./HR. AND DOBUTAMINE GTT. AT 2.5 MCG. SET DOSE RATE.
--- NOTE | 2019-11-12 08:15 | NUR ---
DR. Guy POLANCO Provider/Hospitalist at bedside.
[2019-11-12] MEDS: BUMETANIDE INJECTION 25 MG in GIVE UN-DILUTED 0 ML IV SCH (08:17)
[2019-11-12] MEDS: HYDROCORTISONE SOD SUCC 100 MG/2ML INJ VIAL IV SCH (09:46)
[2019-11-12] MEDS: FAMOTIDINE 20 MG TAB NG SCH (09:47)
[2019-11-12] MEDS: CHOLECALCIFEROL (VITD3) 1,000UNIT=25mCg TAB NG SCH (09:48)
[2019-11-12] MEDS: EVEROLIMUS 0.5 MG PO SCH ×2 (09:49→22:54)
[2019-11-12] MEDS: MYCOPHENOLATE 1000mg/5ml ORALsusp 200mg/ml NG SCH ×2 (09:49→22:52)
[2019-11-12] MEDS: ASCORBIC ACID 500 MG TAB NG SCH ×2 (09:49→22:53)
[2019-11-12] MEDS: ZINC SULFATE 220mg CAP or TAB NG SCH (09:50)
[2019-11-12] MEDS: SODIUM CHLOR 0.9% PF (SALINE LOCK) 10ML VIAL/SYR IV SCH ×2 (09:50→22:00)
[2019-11-12] MEDS ORDERED: EVEROLIMUS 0.5 MG PO SCH (10:00)
--- NOTE | 2019-11-12 11:45 | NUR ---
DR. ALANIS Provider/Hospitalist at bedside. GAVE UPDATE ON PT. NEW ORDERS RECEIVED.
--- NOTE | 2019-11-12 13:00 | NUR ---
NOTED PREVIOUSLY WHILE GIVING PT. MEDS BILE WAS COMING BACK UP IN NGT. NO EMESIS. ALLOWED MEDS TO ABSORB IN STOMACH EARLIER. NOW ATTACHED NGT RT. NARE TO LCS AND 200 CC BILE DRAINED RIGHT AWAY. CONNECTED TO LIS. PT. IS NPO.
--- NOTE | 2019-11-12 13:13 | NUR ---
SPOKE WITH PT'S. MOM HARRIS HERNANDEZ REGARDING HEMODIALYSIS CATHETER PLACEMENT SO THE PT. CAN HAVE DIALYSIS TOMORROW ORDERED BY MD. MOM GAVE CONSENT VIA PHONE WITH ANOTHER RN. DR. ALANIS ASKED TO CONTACT TO SEE IF DR. TYLER CAN PLACE THE HD CATHETER TOMORROW AND HAVE HD TOMORROW. PT. WAS ON ELIQUIS AND STARTED HOLDING DOSES LAST NIGHT PER .
--- NOTE | 2019-11-12 15:12 | NUR ---
DR. MAGANA Provider/Hospitalist at bedside. GAVE UPDATE ON PT.
--- NOTE | 2019-11-12 16:46 | NUR ---
CALLED ER AND DR. ABDULLAHI IS HERE TOMORROW AND WILL BE ABLE TO PLACE HEMODIALYSIS CATHETER.
--- NOTE | 2019-11-12 19:45 | NUR ---
Opening Shift Note Received pt on mechanical ventilator, sedated on propofol and fentanyl. Full assessment done see interventions. Bed locked in lowest position, all alarms on and audible. Pt in full view of RN.
--- NOTE | 2019-11-12 20:30 | NUR ---
Family Pt's gf called for update, password provided and update given.
[2019-11-12] MEDS: NOREPINEPHRINE 8 MG/250ML KIT 250 ML IV SCH (23:12)
[2019-11-12] MEDS: MIDAZOLAM DRIP 50 mg/50mL 50 ML IV SCH (23:12)
[2019-11-13] VITALS (104 sets, daily range): BP systolic 79–132; BP diastolic 51–94
[2019-11-13] MEDS: DOBUTamine 1000MCG/ML 250 ML IV SCH ×2 (01:13→13:26)
--- NOTE | 2019-11-13 03:00 | NUR ---
CARES Pt given full bed bath and full linen change at this time. pt tolerated well. Skin integrity assessed for any changes; none noted
[2019-11-13] MEDS: PROPOFOL 100 ML IV SCH ×4 (03:33→18:55)
[2019-11-13] MEDS: ACCU-CHEK COMFORT CURVE STRIP VI SCH ×6 (04:00→20:18)
[2019-11-13 04:12] LABS: Basophils # (auto) 0 10 ^3/uL (0-0.2); Basophils % (auto) 0.3 % (0.0-2.0); Eosinophils # (auto) 0 10 ^3/uL (0-0.8); Eosinophils % (auto) 1.3 % (0.0-7.0); Hematocrit 32.9 % (41.0-53.0); Hemoglobin 10.8 g/dL (13.5-17.5); Lymphocytes # (auto) 0.4 10 ^3/uL (0.4-5.4); Lymphocytes % (auto) 13.9 % (10.0-50.0); Mean Corpuscular Hemoglobin 25.8 pg (28.0-32.0); Mean Corpuscular Hgb Conc. 32.9 g/dL (32.0-36.0); Mean Corpuscular Volume 78.2 fL (80.0-100.0); Monocytes # (auto) 0.5 10 ^3/uL (0-1.3); Monocytes % (auto) 15.8 % (0.0-12.0); Neutrophils % (auto) 68.7 % (37.0-80.0); Nucleated Red Blood Cells % 0.2 %; Platelet Count (auto) 124 10^3/uL (140-450); Red Blood Cells 4.21 10^6/uL (4.5-5.90); Red Cell Distribution Width 18.2 % (11.8-14.3); White Blood Cell 2.9 10^3/uL (4.4-10.8)
[2019-11-13 04:26] LABS: Albumin 2.6 g/dL (3.4-5.0); Calcium 8.5 mg/dL (8.5-10.1); Potassium 4.3 mmol/L (3.5-5.1)
[2019-11-13 04:30] LABS: Bilirubin, Total 0.4 mg/dL (0.2-1.0); Total Protein 6.7 g/dL (6.4-8.2)
[2019-11-13] MEDS: PIPERACILLIN-TAZOB 2.25GM 50 ML IV SCH ×3 (06:16→21:56)
[2019-11-13] MEDS ORDERED: SODIUM CHL 0.9% 1000 ML BAG XX ONE (07:00)
--- NOTE | 2019-11-13 07:25 | NUR ---
DR. TYLER AT BEDSIDE TO PLACE DIALYSIS CATHETER
--- NOTE | 2019-11-13 07:30 | NUR ---
Opening Shift Note Assumed care of patient, intubated size 8, 28cm at the lip, connected to [facility] vent, AC mode, rate 16, TV 550, FIO2 30%, PEEP 10, saturation 100%. Sedated with Fentanyl and Propofol, RASS -4, decreased Propofol from 30mcg/min to 25 mcg/min. No S/S of pain. Dobutamine running at 2.5 mcg/min, Bumex running at 4ml/hr. RT nare NGT to LIS with minimal brownish drainage. Dr Pereira at bedside, HD catheter insertion LT IJ just completed, awaiting chest xray. See interventions for complete assessment. Bed locked on low position, padded side rails up x2, bed alarms on at all times, will continue to monitor for changes Q1hr and PRN.
--- NOTE | 2019-11-13 07:30 | NUR ---
REPORT GIVEN AND CARE ENDORSED TO DAY SHIFT RN
--- NOTE | 2019-11-13 08:35 | NUR ---
1630 11/10/19 I spoke with [facility] Looping Inspector Kiki and requested that authorization be provided for patient's continued stay. Per Kiki inpatient authorization is extended until 11/11/19 1000. I let Kiki know that Dr. Garcia is still wanting patient transferred to [facility] due to his history of having heart transplant and that he needs to be managed where his cardiologists are. Per Kiki they are still not accepting any [facility] or ICU transfers because they are over saturated with patients. I made Dr. Garcia aware.
[2019-11-13] MEDS ORDERED: APIXABAN 5 MG TAB NG SCH ×2 (10:00→22:00)
--- NOTE | 2019-11-13 10:11 | NUR ---
Dr Kyle at bedside, updated on patient's status. Patient seen and examined. Will carry out new orders.
[2019-11-13] MEDS ORDERED: ALBUMIN 25% 100 ML IV PRN (10:15)
[2019-11-13] MEDS: SODIUM CHLOR 0.9% PF (SALINE LOCK) 10ML VIAL/SYR IV SCH ×2 (10:52→21:55)
[2019-11-13] MEDS: HYDROCORTISONE SOD SUCC 100 MG/2ML INJ VIAL IV SCH (10:52)
[2019-11-13] MEDS: FAMOTIDINE 20 MG TAB NG SCH (10:53)
[2019-11-13] MEDS: ASCORBIC ACID 500 MG TAB NG SCH ×2 (10:53→21:55)
[2019-11-13] MEDS: ZINC SULFATE 220mg CAP or TAB NG SCH (10:53)
[2019-11-13] MEDS: EVEROLIMUS 0.5 MG PO SCH ×2 (10:54→21:55)
[2019-11-13] MEDS: MYCOPHENOLATE 1000mg/5ml ORALsusp 200mg/ml NG SCH ×2 (10:54→21:55)
[2019-11-13] MEDS: BUMETANIDE INJECTION 25 MG in GIVE UN-DILUTED 0 ML IV SCH (10:55)
[2019-11-13] MEDS ORDERED: PIPERACILLIN-TAZOB 0.75 GM in D5W 5% 50 ML IV SCH (11:15)
--- NOTE | 2019-11-13 11:45 | NUR ---
Bedside HD started.
[2019-11-13] MEDS: fentaNYL Drip 2500mCg/250mlNS 250 ML IV SCH (12:47)
[2019-11-13] MEDS: CHOLECALCIFEROL (VITD3) 1,000UNIT=25mCg TAB NG SCH (13:25)
--- NOTE | 2019-11-13 14:13 | NUR ---
Dr Gr at bedside, updated on patient's status. Patient seen and examined. Received verbal order for social service consult and dietary consult. Will carry out.
--- NOTE | 2019-11-13 14:52 | NUR ---
Zosyn not given, HD ongoing.
--- NOTE | 2019-11-13 15:12 | NUR ---
HD at bedside completed, pulled out 1600ml. Patient tolerated well. Will continue to monitor.
--- NOTE | 2019-11-13 15:25 | NUR ---
Received call from [facility], provided needed information for transfer to higher level of care.
--- NOTE | 2019-11-13 15:30 | NUR ---
Dr Washington at bedside, updated on patient's status. Patient seen and examined. Plan to CPAP patient in am.
--- NOTE | 2019-11-13 15:34 | NUR ---
VENT CHANGES DECREASED PEEP TO +[address] ANDREWS'S ORDERES. NOTIFIED ARIEL ALICIA OF CHANGES. PT TOLERATING CHANGES WELL MAINTAINING SPO2 94%. ALARMS ADJUSTED AND AUDIBLE TO NURSE'S STATIONS. PER MD, CPAP TRIAL ORDERS FOR TOMORROW WHEN PT IS AWAKE. WILL ENDORSE PT CARE TO NOC SHIFT RT.
--- NOTE | 2019-11-13 15:42 | NUR ---
1530 11/13/19 I called [facility] and spoke with Supply Requirements Officer Elidia regarding request to transfer this patient to higher level of care. I let Elidia know that COVID-19 is negative and due to patient's history of heart transplant, they want him treated where his cardiologists are-now patient is also in acute renal failure. I faxed higher level of care transfer order to [facility]. I provided Supply Requirements Officer Elidia with contact information for Dr. Garcia, she will give it to her MD.
--- NOTE | 2019-11-13 15:47 | NUR ---
Faxed negative COVID-19 test result to [facility].
--- NOTE | 2019-11-13 15:49 | NUR ---
Nutrition Consult/Follow-up 1) - If pt WILL NOT be scheduled for further dialysis, provide Jevity 1.2 Nick @ 50ml/hr goal rate - If pt WILL be scheduled for further dialysis, provide Nepro 1.8 Nick @ 45 ml/hr goal rate Wt.: 108 kg (11/10/19) Pt remains NPO. Received nutrition consult for tube feeding. Per RN, pt received HD for the first time today but unsure if pt will be scheduled for more dialysis sessions. Currently has CKD stage 3. RN also reported pt's dry weight unknown. Noted pt sedated with propofol running @16.2 ml/hr providing additional 427.68 kcals. Will continue to monitor NPO status, skin status, pertinent labs and weight trends. Will f/u in 2 to 3 days. Est. energy needs: 8046-1767 kcals (17-20 kcal/kg BW). Est. protein needs: 53-70 gms/day (0.6-0.8 gm/kg Adj.BW).- (CKD stage 3) Labs 11/12: Na 130 L, BUN 84 H, Cr 8.36 H, Albumin 2.6 L Skin: Jame scale 11, high risk, skin intact. PES: 1) Inadequate nutrient intake r/t current nutrient needs aeb pt sedated, intubated, NPO 2) Obesity, Class I r/t energy intake in excess of energy needs aeb 134% IBW and BMI of 32.3 kg/m2 3) Altered nutrition related lab values r/t current/chronic medical condition aeb hyponatremia, elev RFTs, low GFR, hyperglycemia, hypocalcemia, elevated LFTs, hypoproteinemia, moderate hypoalbuminemia Additional Recommendations: 1) Gradually advance pt to oral Renal diet when medically appropriate. 2) Continue current plan of care.
--- NOTE | 2019-11-13 15:57 | NUR ---
Patient had unsustained run of V tach, [address] Bowles and continue to monitor.
[2019-11-13] MEDS ORDERED: methylPREDNISolone SOD SUCC 500 MG in SODIUM CHL 0.9% 100 ML IV ONE (16:15)
[2019-11-13] MEDS ORDERED: Nepro With Carb Steady 1 Liter Bottle GT SCH (16:30)
--- NOTE | 2019-11-13 16:54 | NUR ---
1645 11/13/19 I spoke with [facility] Credit Control Clerk Elidia-she let me know that they are going to transfer this patient to [facility]. She will call nurse's station when bed becomes available. I called and spoke with patient's nurse Michelle to make her aware-asked her to make sure the chart is copied and everything placed on a disc. I spoke with patient's mom Almita and made her aware that he would be transferred to [facility] most likely later this evening. She is agreeable to transfer.
--- NOTE | 2019-11-13 17:30 | NUR ---
No further episodes of unsustained V tach, will continue to monitor.
[2019-11-13] MEDS: NOREPINEPHRINE 8 MG/250ML KIT 250 ML IV SCH (17:38)
--- NOTE | 2019-11-13 17:56 | NUR ---
Discharge MRSA swab sent to lab
--- NOTE | 2019-11-13 19:40 | NUR ---
ADMITTED WITH CHEST PAIN, DIAPHORESIS, TACHYCARDIA. CODED TWICE IN ER. INTUBATED IN ER. CARDIOGENIC SHOCK, CHF EXACERBATION, TRANSAMINITIS, HYPONATREMIA. IMMUNOSUPPRESSION CELLCEPT AND ZORTRESS. DIALYSIS TODAY , REMOVED 1600CC. PICC LINE SANTHOSH. ON BUMEX DRIP, DIPRIVAN, DOBUTREX AND FENTANYL. NO SKIN ISSUES. [facility] TRANSFER IN PROCESS. WAITING TO RECEIVE ACCEPTING PHYSICIAN , BED ASSIGNMENT AND ETA. TRANSFER NOT BY DR LARSON. REMAINS IN SINUS TACHYCARDIA . O2 SATURATION 100%. POSITIVE TROPONINS. BNP ELEVATED. WBC 2.9.
--- NOTE | 2019-11-13 20:00 | NUR ---
ACCUCHECK 97
[2019-11-13] MEDS ORDERED: EPOETIN ALFA 10,000 UNIT/1 ML VIAL SC ONE (21:00)
--- NOTE | 2019-11-13 21:15 | NUR ---
CALL RECEIVED FROM [facility] . AUTOMATIC RIVETING MACHINE OPERATOR GAVE ME THE AFTER HOUR NUMBER FOR DR LARSON AT [facility]. I PASSED THAT ON TO [facility].
--- NOTE | 2019-11-13 22:00 | NUR ---
DR LARSON CALLED [facility] AND GAVE PERMISSION FOR CCT RN TO DO TRANSFER. [facility] AWARE.
--- NOTE | 2019-11-13 22:20 | NUR ---
[facility] CALLED WITH ETA OF ONE HOUR.
--- NOTE | 2019-11-13 22:56 | NUR ---
REPORT CALLED TO [facility] [phone] ( CLINICAL DOCUMENTATION CLERK). THERE WAS NOT AN RN TO TAKE THE PATIENT AT THIS MOMENT. SHE TOOK THE REPORT. SHE IS ADJUSTING ASSIGNMENTS ON HER END AND WILL PASS THE REPORT ON.
--- NOTE | 2019-11-13 23:00 | NUR ---
MOTHER NOTIFIED OF TRANSFER TO [facility], ROOM NUMBER AND ACCEPTING PHYSICIAN
[2019-11-14] VITALS: BP 122/83
[2019-11-14] MEDS: ACCU-CHEK COMFORT CURVE STRIP VI SCH (00:06)
--- NOTE | 2019-11-14 00:07 | NUR ---
[facility] HERE FOR TRANSFER TO [facility].
--- NOTE | 2019-11-14 00:10 | NUR ---
ACCUCHECK 124
[2019-11-14 00:15] VITALS: BP 119/82
--- NOTE | 2019-11-14 00:15 | NUR ---
REPORT GIVEN TO [facility].
--- NOTE | 2019-11-14 00:24 | NUR ---
Respiratory note: [facility] IN ROOM FOR PT'S TRANSFER.
--- NOTE | 2019-11-14 00:45 | NUR ---
[facility] LEFT WITH PATIENT.
[2019-11-14] MEDS ORDERED: FAMOTIDINE 20 MG TAB NG SCH (10:00)
== END 2019-11-14 00:45 | disposition short-term general hospital (02) | DRG 207 ==
LOC: EDBD 15:19 → EDUNIT# 15:19 → ER 15:19 → OVERFLOW 15:20 → DOU IN ICU 11-08 13:45 → UNDODISIN 11-13 23:45
PROVIDERS: ADMIT Nurse Practitioner Acute Care; ATTEND Internal Medicine Nephrology
PROC: 5A1955Z Respiratory Ventilation, Greater than 96 Consecutive Hours (ICD-10-PCS; principal; 2019-11-08)
PROC: 0BH17EZ Insertion of Endotracheal Airway into Trachea, Via Natural or Artificial Opening (ICD-10-PCS; 2019-11-08)
PROC: 5A12012 Performance of Cardiac Output, Single, Manual (ICD-10-PCS; 2019-11-08)
PROC: 02HV33Z Insertion of Infusion Device into Superior Vena Cava, Percutaneous Approach (ICD-10-PCS; 2019-11-08)
PROC: 5A1D70Z Performance of Urinary Filtration, Intermittent, Less than 6 Hours Per Day (ICD-10-PCS; 2019-11-13)
DX: J96.21 Acute and chronic respiratory failure with hypoxia (principal); N17.0 Acute kidney failure with tubular necrosis; I50.43 Acute on chronic combined systolic (congestive) and diastolic (congestive) heart failure; J18.9 Pneumonia, unspecified organism; R57.0 Cardiogenic shock; I13.0 Hypertensive heart and chronic kidney disease with heart failure and stage 1 through stage 4 chronic kidney disease, or unspecified chronic kidney disease; I25.811 Atherosclerosis of native coronary artery of transplanted heart without angina pectoris; D61.818 Other pancytopenia; E87.1 Hypo-osmolality and hyponatremia; Z99.11 Dependence on respirator [ventilator] status; D69.6 Thrombocytopenia, unspecified; I25.5 Ischemic cardiomyopathy; I48.91 Unspecified atrial fibrillation; E88.09 Other disorders of plasma-protein metabolism, not elsewhere classified; E87.6 Hypokalemia; N18.3 Chronic kidney disease, stage 3 (moderate); Z79.82 Long term (current) use of aspirin; Z79.899 Other long term (current) drug therapy; Z82.49 Family history of ischemic heart disease and other diseases of the circulatory system; Z86.73 Personal history of transient ischemic attack (TIA), and cerebral infarction without residual deficits; Z87.11 Personal history of peptic ulcer disease; Z03.818 Encounter for observation for suspected exposure to other biological agents ruled out
CPT/HCPCS: 36415; 36569; 36600; 71045; 76775; 80048; 80053; 80197; 80202; 81001; 82570; 82728; 82805; 82962; 83615; 83735; 83880; 84156; 84300; 84484; 85025; 85610; 85730; 86141; 87040; 87070; 87081; 87086; 87205; 87804; 87880; 90935; 92950; 93005; 93306; 94002; 94003; 96365; 96367; 96375; 96376; 99291; G0378; J0330; J0696; J0885; J1642; J2001; J2250; J2405; J2543; J2704; J7060; J7507; J7517